=== PATIENT | female | born 1940 | race Two or more races ===

== ENCOUNTER 2017-05-20 08:14 | Observation (INO) | payer OTHER ==
--- NOTE | 2017-05-20 08:37 | PDOC ---
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 Patient states that her headache started on Saturday and has not gone away since. Patient states that the pain is located in her occipital region on the right side. Patient states that this is like her usual headache however the pain is more intense today. She rates the pain a 10 out of 10. She is tried taking Tylenol for the headache with minimal relief. Patient had a recent MRI of the brain on 04/15/17 which showed no abnormalities. Denies aura, photophobia , phonophobia. Denies weakness, chills, fevers, paresthesias, dizziness, nausea , vomiting and diarrhea. Past History - Travel Traveled outside of the country in the last 30 days: No Close contact w/someone who was outside of country & ill: No - Past Medical History Allergies/Adverse Reactions: Allergies Allergy/AdvReac Type Severity Reaction Status Date / Time No Known Allergies Allergy Verified 05/20/17 08:43 Home Medications: Ambulatory Orders Amlodipine Besylate 5 mg PO DAILY 04/21/16 Lisinopril 5 mg PO BID 04/21/16 Anemia: No Asthma: No Cancer: No Cardiac Disorders: Yes (aortic regurgitation, mitral valve insufficiency.) CVA: Yes COPD: No CHF: No Dementia: No GI Disorders: Yes (gastritis;STOMACH POLYP; HEMORRHOIDS) HTN: Yes Hypercholesterolemia: No Liver Disease: No Seizures: No Thyroid Disease: No - Surgical History Abdominal Surgery: Yes Appendectomy: No Cardiac Surgery: No Cholecystectomy: No Lung Surgery: No Neurologic Surgery: No Orthopedic Surgery: No - Immunization History Immunization Up to Date: Yes - Psycho/Social/Smoking Cessation Hx Anxiety: No Suicidal Ideation: No Smoking Status: No Smoking History: Never smoked Years of Tobacco Use: 0 Have you smoked in the past 12 months: No Number of Cigarettes Smoked Daily: 0 Cigars Per Day: 0 Hx Alcohol Use: No Drug/Substance Use Hx: No Substance Use Type: None Hx Substance Use Treatment: No Review of Systems - Review of Systems Able to Perform ROS?: Yes Is the patient limited [place] proficient: Yes Constitutional: No: Chills, Fever, Malaise, Weakness HEENTM: No: Eye Pain, Blurred Vision, Recent change in vision, Double Vision Respiratory: No: Cough, Shortness of Breath Cardiac (ROS): No: Chest Pain, Lightheadedness, Palpitations, Syncope, Chest Tightness ABD/GI: No: Diarrhea, Nausea, Vomiting Neurological: Yes: Headache. No: Numbness, Paresthesia, Tingling, Weakness, Unsteady Gait, Dizziness Psychiatric: Yes: Anxiety. No: Depression All Other Systems: Reviewed and Negative *Physical Exam - Physical Exam Comments: 05/20/17 10:00 GENERAL: Well developed, well nourished. AAOx3, breathing easily. Moderate distress, restless on exam bed. HEENT: Normocephalic, atraumatic. PERRLA, EOMI. No conjunctival pallor. Sclera are non- icteric. Moist mucous membranes. Oropharynx is clear. NECK: Supple. Full ROM, no nucal rigidity. No JVD. Carotid pulses 2+ and symmetric, without bruits. No thyromegaly. No lymphadenopathy. CARDIOVASCULAR: Regular rate and rhythm. II/ midsystolic murmur. No rubs, or gallops. Distal pulses are 2+ and symmetric. PULMONARY: No evidence of respiratory distress. Lungs clear to auscultation bilaterally. No wheezing, rales or rhonchi. ABDOMINAL: Soft. Non-tender. Non-distended. No rebound or guarding. No organomegaly. Normoactive bowel sounds. MUSCULOSKELETAL Normal range of motion at all joints. No bony deformities or tenderness. No CVA tenderness. EXTREMITIES: No cyanosis. No clubbing. No edema. No calf tenderness. SKIN: Warm and dry. Normal capillary refill. No rashes. No jaundice. NEUROLOGICAL: Alert, awake, appropriate. Cranial nerves 2-12 intact. No deficits to light touch and temperature in face, upper extremities and lower extremities. No motor deficits in the in face, upper extremities and lower extremities. Normoreflexic in the upper and lower extremities. Normal speech. Toes are down- going bilaterally. Gait is normal without ataxia. PSYCHIATRIC: Cooperative. Good eye contact. Appropriate mood and affect. ED Treatment Course - LABORATORY CBC & Chemistry Diagram: 05/20/17 09:20 05/20/17 09:20 Medical Decision Making - Medical Decision Making 05/20/17 09:56 Patient is a 76-year-old female with past medical history of hypertension, aortic regurg, who presents to the emergency department today complaining of headache. Brain MRI from 04/15/17 was negative. Given intensity of headache, will obtain CT scan at this time. 1. CBC, CMP 2. IV Tylenol, Reglan 3. CT Scan 4. Re-evaluate 05/20/17 10:06 Pt. states her pain is unchanged after IV tylenol and reglan. Will try benadryl at this time. Waiting for CT scan results. 05/20/17 10:[address] results, per radiology: No intracranial hemorrhage is seen. In comparison to prevent previous CT study of 04/27/2015 interval mild focal hypodensity is seen within the right paramedian aspect of the mid brain N basis pontis which could be artifactual in nature versus representing interval chronic /subacute ischemic changes. Correlate clinically. MRI evaluation may be considered. There is no obvious mass lesions seen No extra axial fluid collection is noted. The ventricles and cisterns appear unremarkable. Impression: Equivocal development of mild subtle hypodensity within the right mid brain/pontine as discussed above. Spoke with Dr. Dale in the ED. Will evaluate the patient. 05/20/17 12:02 Dr. Ramachandran recommending follow up MRI given changes on CT. Will call Dr. Rick to place in obs. 05/20/17 12:[address] Rick, agrees to obs and repeat MRI. *DC/Admit/Observation/Transfer Diagnosis at time of Disposition: Ischemic changes on computed tomography of head Headache Qualifiers: Headache type: unspecified Headache chronicity pattern: acute headache Intractability: intractable Qualified Code(s): R51 - Headache - Discharge Dispostion Condition at time of disposition: Stable Admit: Yes
[2017-05-20] MEDS ORDERED: ACETAMINOPHEN 325 MG TABLET (FP) PO ONE ×2 (09:02→15:15)
[2017-05-20] MEDS ORDERED: FAMOTIDINE 20 MG/50 ML IVPB 50 ML IVPB ONE ×2 (09:02→09:39)
[2017-05-20] MEDS ORDERED: METOCLOPRAMIDE HCL INJECTION 10 MG/2 ML VIAL ONE (09:11)
[2017-05-20] MEDS ORDERED: METOCLOPRAMIDE HCL INJECTION 10 MG/2 ML VIAL IVPB ONE (09:11)
[2017-05-20] MEDS ORDERED: ACETAMINOPHEN 1000 MG/100 ML VIAL (NON FORMULARY) IVPB ONE (09:11)
[2017-05-20] MEDS ORDERED: ACETAMINOPHEN INJECTION 100 ML IVPB ONE (09:26)
[2017-05-20 09:32] LABS: BASOPHIL 1.2 % (0-2.0); EOSINOPHIL 3.1 % (0-4.5); MCH 32.4 pg (25.7-33.7); MCHC 33.2 g/dl (32.0-36.0); MEAN CELL VOLUME 97.5 fl (80-96); MEAN PLT VOLUME 7.7 fl (7.5-11.1); NEUTROPHILS 58.4 % (42.8-82.8); PLATELET COUNT 231 K/MM3 (134-434); RDW 13.1 % (11.6-15.6); WHITE BLOOD COUNT 5.4 K/mm3 (4.0-10.0)
[2017-05-20] MEDS ORDERED: MAG HYDROX/AL HYDROX/SIMETH 30 ML UNIT-DOSE CUP ONE (09:39)
[2017-05-20 09:49] LABS: ALBUMIN 3.5 g/dl (3.4-5.0); ANION GAP 5 (8-16); BILIRUBIN,TOTAL 0.3 mg/dL (0.2-1.0); CALCIUM 9.1 mg/dL (8.5-10.1); CO2 30 mmol/L (21-32); CREATININE 0.7 mg/dL (0.55-1.02); GLUCOSE,RANDOM 97 mg/dL (74-106); SGOT/AST 14 U/L (15-37); SGPT/ALT 21 U/L (12-78)
[2017-05-20 09:50] LABS: ALK PHOS 71 U/L (45-117)
--- NOTE | 2017-05-20 10:39 | PDOC ---
Attending Attestation - Resident Resident Name: Padmini Phillips - ED Attending Attestation I have performed the following: I have examined & evaluated the patient, The case was reviewed & discussed with the resident, I agree w/resident's findings & plan, Exceptions are as noted - HPI HPI: 05/20/17 12:11 76y F hx of frequent headaches, htn, aortic regurg presents with posterior headache since saturday, it was gradual onset, mostly on the right side, feels similar but more intense than previous without associated vision changes, numbness/tinngling/weakness, n/v, neck stiffness/pain. no recent injuries or trauma, pt had a MRI about a month ago for evaluation of the same. pts exam is unremarakble including an intact neurologic exam. pts CT noted fro some hypodense lesios pt was evluated by neurology will be observed pending MRI - Physicial Exam PE: GENERAL: The patient is awake, alert, and fully oriented, Nontoxic - in no acute distress. HEAD: Normocephalic, atraumatic. EYES: extraocular movements intact, sclera anicteric, conjunctiva clear. ENT: Normal voice, Moist mucous membranes. NECK: Normal range of motion, supple LUNGS: Breath sounds equal, clear to auscultation bilaterally. No wheezes, no rhonchi, no rales. HEART: Regular rate and rhythm, normal S1 and S2 without murmur, rub or gallop. ABDOMEN: Soft, nontender, normoactive bowel sounds. No guarding, no rebound. . No CVA tenderness EXTREMITIES: Normal range of motion, no edema. NEUROLOGICAL: No facial assymetry, Normal speech, movnig all 4 extremities spontaneously and symmetrically, finger to nose symmetric b/l w/o dysmetria, normal rapid alternating movements. PSYCH: Normal mood, normal affect. SKIN: Warm, Dry, normal turgor, - Medical Decision Making 05/21/17 11:23 see above
--- NOTE | 2017-05-20 13:03 | CONSULT ---
Consult - text type - Consultation Consultation Note: Neurology History of Present Illness Patient is a 76-year-old female with past medical history of hypertension, aortic regurg, who presents to the emergency department today complaining of headache. Patient states that her headache started on Saturday and has not gone away since. Patient states that the pain is located in her occipital region on the right side. She states it's continous and constant. She tried Tylenol with minimal relief. Denies aura, photophobia, phonophobia. Denies weakness, chills , fevers, paresthesias, dizziness, nausea, vomiting and diarrhea. CT scan of head completed and showed questionable hypodensity of right midbrain/harjit and therefore MRI brain recommended. She completed an MRI brain approximately two months ago and was told it is normal. Past History - Travel Traveled outside of the country in the last 30 days: No Close contact w/someone who was outside of country & ill: No - Past Medical History Allergies/Adverse Reactions: Allergies Allergy/AdvReac Type Severity Reaction Status Date / Time No Known Allergies Allergy Verified 05/20/17 08:43 Home Medications: Ambulatory Orders Amlodipine Besylate 5 mg PO DAILY 04/21/16 Lisinopril 5 mg PO BID 04/21/16 Anemia: No Asthma: No Cancer: No Cardiac Disorders: Yes (aortic regurgitation, mitral valve insufficiency.) CVA: Yes COPD: No CHF: No Dementia: No GI Disorders: Yes (gastritis;STOMACH POLYP; HEMORRHOIDS) HTN: Yes Hypercholesterolemia: No Liver Disease: No Seizures: No Thyroid Disease: No - Surgical History Abdominal Surgery: Yes Appendectomy: No Cardiac Surgery: No Cholecystectomy: No Lung Surgery: No Neurologic Surgery: No Orthopedic Surgery: No - Immunization History Immunization Up to Date: Yes - Psycho/Social/Smoking Cessation Hx Anxiety: No Suicidal Ideation: No Smoking Status: No Smoking History: Never smoked Years of Tobacco Use: 0 Have you smoked in the past 12 months: No Number of Cigarettes Smoked Daily: 0 Cigars Per Day: 0 Hx Alcohol Use: No Drug/Substance Use Hx: No Substance Use Type: None Hx Substance Use Treatment: No Review of Systems - Review of Systems Able to Perform ROS?: Yes Is the patient limited [place] Citizen proficient: Yes Constitutional: No: Chills, Fever, Malaise, Weakness HEENTM: No: Eye Pain, Blurred Vision, Recent change in vision, Double Vision Respiratory: No: Cough, Shortness of Breath Cardiac (ROS): No: Chest Pain, Lightheadedness, Palpitations, Syncope, Chest Tightness ABD/GI: No: Diarrhea, Nausea, Vomiting Neurological: Yes: Headache. No: Numbness, Paresthesia, Tingling, Weakness, Unsteady Gait, Dizziness Psychiatric: Yes: Anxiety. No: Depression All Other Systems: Reviewed and Negative *Physical Exam Vital Signs Temperature 98.2 F 05/20/17 08:15 Pulse Rate 74 05/20/17 12:36 Respiratory Rate 18 05/20/17 12:36 Blood Pressure 115/74 05/20/17 12:36 O2 Sat by Pulse Oximetry (%) 100 05/20/17 12:36 GENERAL: Well developed, well nourished. AAOx3, breathing easily. Moderate distress, restless on exam bed. HEENT: Normocephalic, atraumatic. PERRLA, EOMI. No conjunctival pallor. Sclera are non- icteric. Moist mucous membranes. Oropharynx is clear. NECK: Supple. Full ROM, no nucal rigidity. No JVD. Carotid pulses 2+ and symmetric, without bruits. No thyromegaly. No lymphadenopathy. CARDIOVASCULAR: Regular rate and rhythm. II/ midsystolic murmur. No rubs, or gallops. Distal pulses are 2+ and symmetric. PULMONARY: No evidence of respiratory distress. Lungs clear to auscultation bilaterally. No wheezing, rales or rhonchi. ABDOMINAL: Soft. Non-tender. Non-distended. No rebound or guarding. No organomegaly. Normoactive bowel sounds. MUSCULOSKELETAL Normal range of motion at all joints. No bony deformities or tenderness. No CVA tenderness. EXTREMITIES: No cyanosis. No clubbing. No edema. No calf tenderness. SKIN: Warm and dry. Normal capillary refill. No rashes. No jaundice. NEUROLOGICAL: Alert, awake, appropriate. Cranial nerves 2-12 intact. No deficits to light touch and temperature in face, upper extremities and lower extremities. No motor deficits in the in face, upper extremities and lower extremities. Normoreflexic in the upper and lower extremities. Normal speech. Toes are down- going bilaterally. Gait is normal without ataxia. PSYCHIATRIC: Cooperative. Good eye contact. Appropriate mood and affect. CBCD WBC 5.4 K/mm3 (4.0-10.0) 05/20/17 09:20 RBC 4.18 M/mm3 (3.60-5.2) 05/20/17 09:20 Hgb 13.5 GM/dL (10.7-15.3) 05/20/17 09:20 Hct 40.8 % (32.4-45.2) 05/20/17 09:20 MCV 97.5 fl (80-96) H 05/20/17 09:20 MCHC 33.2 g/dl (32.0-36.0) 05/20/17 09:20 RDW 13.1 % (11.6-15.6) 05/20/17 09:20 Plt Count 231 K/MM3 (134-434) 05/20/17 09:20 MPV 7.7 fl (7.5-11.1) 05/20/17 09:20 CMP Sodium 143 mmol/L (136-145) 05/20/17 09:20 Potassium 4.7 mmol/L (3.5-5.1) 05/20/17 09:20 Chloride 108 mmol/L (98-107) H 05/20/17 09:20 Carbon Dioxide 30 mmol/L (21-32) 05/20/17 09:20 Anion Gap 5 (8-16) L 05/20/17 09:20 BUN 8 mg/dL (7-18) D 05/20/17 09:20 Creatinine 0.7 mg/dL (0.55-1.02) 05/20/17 09:20 Creat Clearance w eGFR > 60 (>60) 05/20/17 09:20 Calcium 9.1 mg/dL (8.5-10.1) 05/20/17 09:20 Total Bilirubin 0.3 mg/dL (0.2-1.0) D 05/20/17 09:20 AST 14 U/L (15-37) L D 05/20/17 09:20 ALT 21 U/L (12-78) 05/20/17 09:20 Alkaline Phosphatase 71 U/L (45-117) 05/20/17 09:20 Total Protein 7.0 g/dl (6.4-8.2) 05/20/17 09:20 Albumin 3.5 g/dl (3.4-5.0) 05/20/17 09:[address] results, per radiology: No intracranial hemorrhage is seen. In comparison to prevent previous CT study of 04/27/2015 interval mild focal hypodensity is seen within the right paramedian aspect of the mid brain N basis pontis which could be artifactual in nature versus representing interval chronic /subacute ischemic changes. Correlate clinically. MRI evaluation may be considered. There is no obvious mass lesions seen No extra axial fluid collection is noted. The ventricles and cisterns appear unremarkable. Impression: Equivocal development of mild subtle hypodensity within the right mid brain/pontine as discussed above. Medical Decision Making 76-year-old female with past medical history of hypertension, aortic regurg, who presents to the emergency department today complaining of headache. Patient states that her headache started on Saturday and has not gone away since. Patient states that the pain is located in her occipital region on the right side. She states it's continous and constant. She tried Tylenol with minimal relief. Denies aura, photophobia, phonophobia. Denies weakness, chills, fevers , paresthesias, dizziness, nausea, vomiting and diarrhea. CT scan of head completed and showed questionable hypodensity of right midbrain/harjit and therefore MRI brain recommended. She completed an MRI brain approximately two months ago and was told it is normal. Would start ASA if no GI contraindications. IF CVA found, then would recommended Carotid Doppler, Echo, Lipid panel, but would first obtain MRI brain w/o contrast. Blood pressure control recommended, prefer <140/90.
[2017-05-20 14:06] VITALS: BMI 25.2
[2017-05-20] MEDS ORDERED: ONDANSETRON *ODT* 4 MG TABLET SL PRN (17:18)
--- NOTE | 2017-05-20 17:22 | HP ---
Admitting History and Physical - Primary Care Physician PCP: Matheus Rick - Admission Chief Complaint: headache r/o cva History of Present Illness: ADMITTED FOR SEVERE HEADACHE FOR 2 DAYS, CT HEAD SHOWS HYPODENSITY AND NEEDS MRI TO R/O ACUTE VS CHRONIC PROCESS. HISTORY OF HTN AND MIGRAINE HEADACHES. CARDIAC VALVE DISEASE, CHECK ECHO AND CARDIOLOGY WORKUP. - Past Medical History Cardiovascular: Yes: Aortic Insufficiency, HTN, Mitral Insufficiency. No: AFIB , Aneurysm, Aortic Stenosis, CAD, CHF, Deep Vein Thrombosis, Hyperlipdemia, [place], Mitral Stenosis, Murmur, Pulmonary Hypertension, Other - Smoking History Smoking history: Never smoked Have you smoked in the past 12 months: No Aproximately how many cigarettes per day: 0 - Alcohol/Substance Use Hx Alcohol Use: No Home Medications - Allergies Allergies/Adverse Reactions: Allergies Allergy/AdvReac Type Severity Reaction Status Date / Time No Known Allergies Allergy Verified 05/20/17 08:43 - Home Medications Home Medications: Ambulatory Orders Amlodipine Besylate 5 mg PO DAILY 04/21/16 Lisinopril 5 mg PO BID 04/21/16 Review of Systems - Review of Systems Constitutional: reports: Loss of Appetite Eyes: reports: No Symptoms HENT: reports: No Symptoms Neck: reports: No Symptoms Cardiovascular: reports: No Symptoms Respiratory: reports: No Symptoms Gastrointestinal: reports: No Symptoms Genitourinary: reports: No Symptoms Musculoskeletal: reports: No Symptoms Integumentary: reports: No Symptoms Neurological: reports: Headache Endocrine: reports: No Symptoms Hematology/Lymphatic: reports: No Symptoms Psychiatric: reports: No Symptoms Physical Examination Vital Signs: Vital Signs Temperature 98.2 F 05/20/17 15:48 Pulse Rate 58 L 05/20/17 15:48 Respiratory Rate 18 05/20/17 15:48 Blood Pressure 141/73 05/20/17 15:48 O2 Sat by Pulse Oximetry (%) 100 05/20/17 14:00 Constitutional: Yes: Mild Distress Eyes: Yes: WNL HENT: Yes: WNL Neck: Yes: WNL Cardiovascular: Yes: WNL Respiratory: Yes: WNL Gastrointestinal: Yes: WNL Renal/: Yes: WNL Musculoskeletal: Yes: WNL Extremities: Yes: WNL Edema: No Peripheral Pulses WNL: Yes Integumentary: Yes: WNL Wound/Incision: Yes: Clean/Dry Neurological: Yes: WNL ...Motor Strength: WNL Psychiatric: Yes: WNL Imaging - Results Cat Scan: Report Reviewed Problem List - Problems (1) Headache Code(s): R51 - HEADACHE Qualifiers: Headache type: unspecified Headache chronicity pattern: acute headache Intractability: intractable Qualified Code(s): R51 - Headache (2) Ischemic changes on head CT Code(s): I67.82 - CEREBRAL ISCHEMIA (3) Hypertension Code(s): I10 - ESSENTIAL (PRIMARY) HYPERTENSION Assessment/Plan MRI BRAIN NEURO CHECKS LIPID PANEL ECHO F/U WITH NEUROLOGY
[2017-05-20] MEDS: KETOROLAC TROMETHAMINE 30 MG/1 ML VIAL IVPUSH PRN (18:57)
[2017-05-21] MEDS: KETOROLAC TROMETHAMINE 30 MG/1 ML VIAL IVPUSH PRN (01:55)
[2017-05-21] MEDS ORDERED: SUMAtriptan SUCCINATE 25 MG TABLET PO ONE ×2 (09:00→15:30)
[2017-05-21 09:03] LABS: CHOLESTEROL 142 mg/dL (50-200); LDL CHOLESTEROL (ONLY SJRH) 54 mg/dL (5-100)
--- NOTE | 2017-05-21 09:48 | PN ---
Progress Note (short form) - Note Progress Note: Neurology History of Present Illness Patient is a 76-year-old female with past medical history of hypertension, aortic regurg, who presents to the emergency department today complaining of headache. Patient states that her headache started on Saturday and has not gone away since. Patient states that the pain is located in her occipital region on the right side. She states it's continous and constant. She tried Tylenol with minimal relief. Denies aura, photophobia, phonophobia. Denies weakness, chills , fevers, paresthesias, dizziness, nausea, vomiting and diarrhea. CT scan of head completed and showed questionable hypodensity of right midbrain/harjit and therefore MRI brain recommended, completed overnight and reviewed images and report- did not show any acute changes. Patient with continued discomfort but awaiting discharge today. Imitrex prescribed by PCP and can be taken as needed. Active Medications Amlodipine Besylate (Norvasc -) 5 mg PO DAILY [facility] Last Admin: 05/21/17 09:23 Dose: 5 mg Ketorolac Tromethamine (Toradol Injection -) 30 mg IVPUSH Q6H PRN PRN Reason: PAIN Stop: 05/25/17 17:17 Last Admin: 05/21/17 01:55 Dose: 30 mg Lisinopril (Prinivil) 5 mg PO DAILY [facility] Last Admin: 05/21/17 09:23 Dose: 5 mg Ondansetron HCl (Zofran Odt -) 4 mg SL Q6H PRN PRN Reason: NAUSEA AND/OR VOMITING *Physical Exam Vital Signs Temperature 97.9 F 05/21/17 06:00 Pulse Rate 67 05/21/17 06:00 Respiratory Rate 18 05/21/17 06:00 Blood Pressure 147/68 05/21/17 06:00 O2 Sat by Pulse Oximetry (%) 100 05/21/17 01:17 GENERAL: Well developed, well nourished. AAOx3, breathing easily. Moderate distress, restless on exam bed. HEENT: Normocephalic, atraumatic. PERRLA, EOMI. No conjunctival pallor. Sclera are non- icteric. Moist mucous membranes. Oropharynx is clear. NECK: Supple. Full ROM, no nucal rigidity. No JVD. Carotid pulses 2+ and symmetric, without bruits. No thyromegaly. No lymphadenopathy. CARDIOVASCULAR: Regular rate and rhythm. II/ midsystolic murmur. No rubs, or gallops. Distal pulses are 2+ and symmetric. PULMONARY: No evidence of respiratory distress. Lungs clear to auscultation bilaterally. No wheezing, rales or rhonchi. ABDOMINAL: Soft. Non-tender. Non-distended. No rebound or guarding. No organomegaly. Normoactive bowel sounds. MUSCULOSKELETAL Normal range of motion at all joints. No bony deformities or tenderness. No CVA tenderness. EXTREMITIES: No cyanosis. No clubbing. No edema. No calf tenderness. SKIN: Warm and dry. Normal capillary refill. No rashes. No jaundice. NEUROLOGICAL: Alert, awake, appropriate. Cranial nerves 2-12 intact. No deficits to light touch and temperature in face, upper extremities and lower extremities. No motor deficits in the in face, upper extremities and lower extremities. Normoreflexic in the upper and lower extremities. Normal speech. Toes are down- going bilaterally. Gait is normal without ataxia. PSYCHIATRIC: Cooperative. Good eye contact. Appropriate mood and affect. CBCD WBC 5.4 K/mm3 (4.0-10.0) 05/20/17 09:20 RBC 4.18 M/mm3 (3.60-5.2) 05/20/17 09:20 Hgb 13.5 GM/dL (10.7-15.3) 05/20/17 09:20 Hct 40.8 % (32.4-45.2) 05/20/17 09:20 MCV 97.5 fl (80-96) H 05/20/17 09:20 MCHC 33.2 g/dl (32.0-36.0) 05/20/17 09:20 RDW 13.1 % (11.6-15.6) 05/20/17 09:20 Plt Count 231 K/MM3 (134-434) 05/20/17 09:20 MPV 7.7 fl (7.5-11.1) 05/20/17 09:20 CMP Sodium 143 mmol/L (136-145) 05/20/17 09:20 Potassium 4.7 mmol/L (3.5-5.1) 05/20/17 09:20 Chloride 108 mmol/L (98-107) H 05/20/17 09:20 Carbon Dioxide 30 mmol/L (21-32) 05/20/17 09:20 Anion Gap 5 (8-16) L 05/20/17 09:20 BUN 8 mg/dL (7-18) D 05/20/17 09:20 Creatinine 0.7 mg/dL (0.55-1.02) 05/20/17 09:20 Creat Clearance w eGFR > 60 (>60) 05/20/17 09:20 Calcium 9.1 mg/dL (8.5-10.1) 05/20/17 09:20 Total Bilirubin 0.3 mg/dL (0.2-1.0) D 05/20/17 09:20 AST 14 U/L (15-37) L D 05/20/17 09:20 ALT 21 U/L (12-78) 05/20/17 09:20 Alkaline Phosphatase 71 U/L (45-117) 05/20/17 09:20 Total Protein 7.0 g/dl (6.4-8.2) 05/20/17 09:20 Albumin 3.5 g/dl (3.4-5.0) 05/20/17 09:[address] results, per radiology: No intracranial hemorrhage is seen. In comparison to prevent previous CT study of 04/27/2015 interval mild focal hypodensity is seen within the right paramedian aspect of the mid brain N basis pontis which could be artifactual in nature versus representing interval chronic /subacute ischemic changes. Correlate clinically. MRI evaluation may be considered. There is no obvious mass lesions seen No extra axial fluid collection is noted. The ventricles and cisterns appear unremarkable. Impression: Equivocal development of mild subtle hypodensity within the right mid brain/pontine as discussed above. MRI brain: No acute changes, no infarcts visualized. Medical Decision Making 76-year-old female with past medical history of hypertension, aortic regurg, who presents to the emergency department today complaining of headache. Patient states that her headache started on Saturday and has not gone away since. Patient states that the pain is located in her occipital region on the right side. She states it's continous and constant. She tried Tylenol with minimal relief. Denies aura, photophobia, phonophobia. Denies weakness, chills, fevers , paresthesias, dizziness, nausea, vomiting and diarrhea. CT scan of head completed and showed questionable hypodensity of right midbrain/harjit and therefore MRI brain recommended. She completed an MRI brain which was negative. Imitrex perscribed and can be used. Fioricet also an option for outpatient medication. Blood pressure control recommended, prefer <140/90. Stroke precautions discussed. Daughter at bedside and discussed with her case and imaging findings. Ok for discharge.
[2017-05-21] MEDS ORDERED: amLODIPine BESYLATE 5 MG TABLET (FP) PO SCH (10:00)
[2017-05-21] MEDS ORDERED: LISINOPRIL 5 MG TABLET (FP) PO SCH (10:00)
[2017-05-21 11:05] VITALS: TEMP 98.2
[2017-05-21 14:56] VITALS: BP 138/76; PULSE 70
[2017-05-21] MEDS ORDERED: SUMAtriptan SUCCINATE 25 MG TABLET PO PRN (15:40)
--- NOTE | 2017-05-21 15:43 | DS ---
Physical Examination Vital Signs: Vital Signs Temperature 98.2 F 05/21/17 14:55 Pulse Rate 70 05/21/17 14:55 Respiratory Rate 18 05/21/17 14:55 Blood Pressure 138/76 05/21/17 14:55 O2 Sat by Pulse Oximetry (%) 96 05/21/17 09:00 Constitutional: Yes: No Distress Eyes: Yes: WNL HENT: Yes: WNL Neck: Yes: WNL Cardiovascular: Yes: WNL Respiratory: Yes: WNL Gastrointestinal: Yes: WNL Renal/: Yes: WNL Musculoskeletal: Yes: WNL Extremities: Yes: WNL Edema: No Peripheral Pulses WNL: Yes Integumentary: Yes: WNL Wound/Incision: Yes: Clean/Dry Neurological: Yes: WNL ...Motor Strength: WNL Psychiatric: Yes: WNL Discharge Summary Reason For Visit: HEADACHE, ISCHEMIC CHANGES ON CT OF HEAD Current Active Problems Headache (Acute) Ischemic changes on head CT (Acute) Procedures: Principal: mri brain Other Procedures: CT SCAN HEAD Hospital Course: ADMITTED TO OBSERVATION R/O CVA VS HEADACHE, MRI NO ACUTE CHANGES, SUMATRIPTAN PRN, F/U WITH ECHO SHOWS PULMONARY HTN. Condition: Improved - Instructions Diet, Activity, Other Instructions: SEE DR RICK FOR FOLLOW UP OF PULMONARY HYPERTENSION LOW SALT Referrals: Matheus Rick MD [Primary Care Provider] - Disposition: HOME - Home Medications Comprehensive Discharge Medication List: Ambulatory Orders Amlodipine Besylate 5 mg PO DAILY 04/21/16 Lisinopril 5 mg PO BID 04/21/16
== END 2017-05-21 16:25 | disposition home or self-care (01) ==
LOC: JER 08:14 → JERBED 12:25 → J5S 14:48
PROVIDERS: ADMIT Family Medicine; ATTEND Family Medicine
PROC: 3E0333Z Introduction of Anti-inflammatory into Peripheral Vein, Percutaneous Approach (ICD-10-PCS; principal; 2017-05-20)
PROC: 3E033GC Introduction of Other Therapeutic Substance into Peripheral Vein, Percutaneous Approach (ICD-10-PCS; 2017-05-20)
DX: I67.82 Cerebral ischemia (principal); R51 Headache; R93.0 Abnormal findings on diagnostic imaging of skull and head, not elsewhere classified; I10 Essential (primary) hypertension; I35.1 Nonrheumatic aortic (valve) insufficiency; Z86.73 Personal history of transient ischemic attack (TIA), and cerebral infarction without residual deficits
CPT/HCPCS: 36415; 70450-TC; 70551-TC; 80053; 80061; 83721; 85025; 85651; 86140; 93306-TC; 99284-25; G0378

== ENCOUNTER 2018-02-15 17:19 | Emergency (ER) | payer OTHER ==
[2018-02-15 17:39] VITALS: PULSE 74; TEMP 97.6; BMI 29.2
--- NOTE | 2018-02-15 17:43 | PDOC ---
History of Present Illness - General Chief Complaint: Headache Stated Complaint: ON THE BACK SIDE OF HER HEAD Time Seen by Provider: 02/15/18 17:42 - History of Present Illness Initial Comments: 02/15/18 18:13 Ms. Reed Conley is a 77 yo female w/ pmh of HTN, aortic regurgitation, migraines who presents to the ER with complaints of headache for the past day. She describes this as identical to her previous presentation for headache for which she was admitted with CT and MRI for evaluation. She describes the headache as being at the posterior of her right head and that it feels like "someone is hitting her head with a hammer." Denies photophobia, phonophobia, aura. She too, sumatriptan this morning and alprazolam at 1pm with no relief from symptoms. The patient denies chest pain, shortness of breath, and dizziness. Denies fever , chills, nausea, vomit, diarrhea and constipation. Denies dysuria, frequency, urgency and hematuria. Allergies: NKDA Past History - Past Medical History Allergies/Adverse Reactions: Allergies Allergy/AdvReac Type Severity Reaction Status Date / Time No Known Allergies Allergy Verified 02/15/18 17:38 Home Medications: Ambulatory Orders Amlodipine Besylate 5 mg PO DAILY 04/21/16 Lisinopril 5 mg PO BID 04/21/16 Amlodipine Besylate [Norvasc -] 5 mg PO DAILY tablet 05/21/17 Lisinopril [Prinivil] 5 mg PO DAILY tablet 05/21/17 Ondansetron [Zofran Odt -] 4 mg SL Q6H PRN #20 tab 05/21/17 Sumatriptan Succinate [Imitrex -] 25 mg PO BID #60 tablet 05/21/17 Methocarbamol [Robaxin -] 500 mg PO TID #21 tablet 02/15/18 Anemia: No Asthma: No Cancer: No Cardiac Disorders: Yes (aortic regurgitation, mitral valve insufficiency.) CVA: Yes COPD: No CHF: No Dementia: No GI Disorders: Yes (gastritis;STOMACH POLYP; HEMORRHOIDS) HTN: Yes Hypercholesterolemia: No Liver Disease: No Seizures: No Thyroid Disease: No - Surgical History Abdominal Surgery: Yes Appendectomy: No Cardiac Surgery: No Cholecystectomy: No Lung Surgery: No Neurologic Surgery: No Orthopedic Surgery: No - Immunization History Immunization Up to Date: Yes - Suicide/Smoking/Psychosocial Hx Smoking Status: No Smoking History: Never smoked Years of Tobacco Use: 0 Have you smoked in the past 12 months: No Number of Cigarettes Smoked Daily: 0 Cigars Per Day: 0 Information on smoking cessation initiated: No Hx Alcohol Use: No Drug/Substance Use Hx: No Substance Use Type: None Hx Substance Use Treatment: No Review of Systems - Review of Systems Comments:: 02/15/18 18:24 GENERAL/CONSTITUTIONAL: No fever or chills. No weakness. HEAD, EYES, EARS, NOSE AND THROAT: No change in vision. No ear pain or discharge. No sore throat. CARDIOVASCULAR: No chest pain or shortness of breath RESPIRATORY: No cough, wheezing, or hemoptysis. GASTROINTESTINAL: No nausea, vomiting, diarrhea or constipation. GENITOURINARY: No dysuria, frequency, or change in urination. MUSCULOSKELETAL: No joint or muscle swelling or pain. No neck or back pain. SKIN: No rash NEUROLOGIC: +Headache as described. No vertigo, loss of consciousness, or change in strength/sensation. ENDOCRINE: No increased thirst. No abnormal weight change HEMATOLOGIC/LYMPHATIC: No anemia, easy bleeding, or history of blood clots. ALLERGIC/IMMUNOLOGIC: No hives or skin allergy. 02/15/18 18:39 *Physical Exam - Vital Signs Last Vital Signs Temp Pulse Resp BP Pulse Ox 97.6 F 74 15 152/73 100 02/15/18 17:24 02/15/18 17:24 02/15/18 17:24 02/15/18 17:24 02/15/18 17:24 - Physical Exam Comments: 02/15/18 18:24 GENERAL: Awake, alert, and fully oriented, in no acute distress HEAD: No signs of trauma, normocephalic, atraumatic EYES: PERRLA, EOMI, sclera anicteric, conjunctiva clear ENT: Auricles normal inspection, hearing grossly normal, nares patent, oropharynx clear without exudates. Moist mucosa NECK: Normal ROM, supple, no lymphadenopathy, JVD, or masses LUNGS: No distress, speaks full sentences, clear to auscultation bilaterally HEART: Regular rate and rhythm, normal S1 and S2, no murmurs, rubs or gallops, peripheral pulses normal and equal bilaterally. ABDOMEN: Soft, nontender, normoactive bowel sounds. No guarding, no rebound. No masses EXTREMITIES: Normal inspection, Normal range of motion, no edema. No clubbing or cyanosis. NEUROLOGICAL: Cranial nerves II through XII grossly intact. Normal speech, normal gait, no focal sensorimotor deficits SKIN: Warm, Dry, normal turgor, no rashes or lesions noted. ED Treatment Course - LABORATORY CBC & Chemistry Diagram: 02/15/18 18:52 02/15/18 18:52 Medical Decision Making - Medical Decision Making 02/15/18 19:03 Ms. Reed Conley is a 77 yo female w/ pmh as described who presents for evaluation of headache x1 day. Labs sent for evaluation of infectious process or electrolyte abnormality. Benadryl/reglan/fluids/ativan/magnesium sent for symptomatic relief. Patient signed out to Dr. Solo for further evaluation. 02/15/18 19:04 *DC/Admit/Observation/Transfer Diagnosis at time of Disposition: Neck muscle spasm Headache Qualifiers: Headache type: unspecified Headache chronicity pattern: unspecified pattern Intractability: not intractable Qualified Code(s): R51 - Headache Back pain Qualifiers: Back pain location: back pain in unspecified location Chronicity: chronic Back pain laterality: unspecified Qualified Code(s): M54.9 - Dorsalgia, unspecified - Discharge Dispostion Disposition: HOME Condition at time of disposition: Stable - Prescriptions Prescriptions: Methocarbamol [Robaxin -] 500 mg PO TID #21 tablet - Referrals Referrals: [facility] [place] [facility] at [place] [Provider Group] - Patient Instructions Printed Discharge Instructions: DI for Headache Additional Instructions: You were seen in the ER for a headache. We did an exam, labs, and a head CT, and we did not find any signs of an emergency. Your pain improved with the medications we gave you here in the ER. After our assessment, we believe you are not having a medical emergency and you are safe to go home. 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 You can also take your normal prescription pain relievers as prescribed. Follow up with your regular doctor(s ) in the next 1-3 days. Call their clinic [facility], tell them you were seen in the ER, and tell them you need an appointment. Please come back to the ER at any time, 24 hours a day, for any new or worsening symptoms, like worsening headache , new numbness/tingling, fainting, dizziness, new vision changes, high fever, or other symptoms. If you are having symptoms that make it unsafe to drive, please call 911. - Post Discharge Activity
[2018-02-15] MEDS ORDERED: SODIUM CHLORIDE 1,000 ML IV STA (18:11)
[2018-02-15] MEDS ORDERED: MAGNESIUM SULF 50% (8.12 MEQ/2 ML-1 GM VIAL) IVPB ONE (18:12)
[2018-02-15] MEDS ORDERED: METOCLOPRAMIDE HCL INJECTION 10 MG/2 ML VIAL IVPB ONE (18:12)
[2018-02-15] MEDS ORDERED: METOCLOPRAMIDE HCL INJECTION 10 MG/2 ML VIAL ONE (18:37)
[2018-02-15] MEDS ORDERED: MAGNESIUM SULF 50% (8.12 MEQ/2 ML-1 GM VIAL) ONE (18:38)
[2018-02-15 18:58] LABS: BASO % 0.8 % (0-2.0); EOS % 2.3 % (0-4.5); HEMATOCRIT 38.3 % (32.4-45.2); HEMOGLOBIN 13.2 GM/dL (10.7-15.3); LYMPH % 26.7 % (8-40); MCH 33.1 pg (25.7-33.7); MCHC 34.5 g/dl (32.0-36.0); MEAN CELL VOLUME 95.8 fl (80-96); MEAN PLT VOLUME 7.6 fl (7.5-11.1); MONO % 8.5 % (3.8-10.2); NEUT % 61.7 % (42.8-82.8); PLATELET COUNT 243 K/MM3 (134-434); RBC 3.99 M/mm3 (3.60-5.2); RDW 13.7 % (11.6-15.6); WHITE BLOOD COUNT 6.6 K/mm3 (4.0-10.0)
--- NOTE | 2018-02-15 19:17 | PDOC ---
Attending Attestation - Resident Resident Name: Omar Welch - ED Attending Attestation I have performed the following: I have examined & evaluated the patient, The case was reviewed & discussed with the resident, I agree w/resident's findings & plan, Exceptions are as noted - HPI HPI: 02/15/18 19:14 "The patient is a 77 year old female, with a significant past medical history of hypertension, aortic regurg, and migraines, who presents to the emergency department with, 1 day of a headache. She describes her headache as pounding, gradually progressing, and localized to the posterior right side. She reports similar episodes in the past. Denies any new characteristics to her [place] today. Pt had similar episode last year and was admitted for CT and MRI, which was normal. She reports taking sumatriptan this morning and alprazolam at 1pm, without relief. She denies photophobia. Denies thunderclap. Denies neck stiffness. She denies recent fevers, chills, or dizziness. She denies recent nausea, vomit, diarrhea or constipation. She denies recent dysuria, frequency, urgency or hematuria. She denies recent chest pain or shortness of breath. Allergies: NKA Social history: Nonsmoker. Denies EtOH use and recreational drug use. " - Physicial Exam PE: 02/15/18 19:16 "GENERAL: Awake, alert, and fully oriented, in no acute distress. HEAD: No signs of trauma EYES: PERRLA, EOMI, sclera anicteric, conjunctiva clear ENT: Auricles normal inspection, hearing grossly normal, nares patent, oropharynx clear without exudates. Moist mucosa NECK: Nontender, no stepoffs, Normal ROM, supple, no lymphadenopathy, JVD, or masses LUNGS: Breath sounds equal, clear to auscultation bilaterally. No wheezes, and no crackles HEART: Regular rate and rhythm, normal S1 and S2, no murmurs, rubs or gallops ABDOMEN: Soft, nontender, normoactive bowel sounds. No guarding, no rebound. No masses EXTREMITIES: Normal range of motion, no edema. No clubbing or cyanosis. No cords, erythema, or tenderness NEUROLOGICAL: Cranial nerves II through XII intact. 5/5 strength and sensation in all extremities, Normal speech, normal gait, normal cerebellar function SKIN: Warm, Dry, normal turgor, no rashes or lesions noted. " - Medical Decision Making 02/15/18 19:16 77 F with headache. Likely migraine as symptoms are consistent with pt's previous headaches. No red flags for SAH or meningitis. Normal neuro exam. - Labs - CTH - IVF, tylenol, reglan, benadryl, ativan - reassess Pt signed out to oncoming attending at 7pm, pending labs, CT, and re-evaluation. Case discussed in detail with oncoming Emergency Physician including history, physical exam and ancillary studies. Oncoming Emergency Physician has assumed care for the patient and will complete the evaluation and treatment. Patient is aware of the plan.
[2018-02-15 19:23] LABS: ALBUMIN 3.7 g/dl (3.4-5.0); ALK PHOS 87 U/L (45-117); ANION GAP 6 (8-16); BILIRUBIN,TOTAL 0.4 mg/dL (0.2-1.0); BLOOD UREA NITROGEN 10 mg/dL (7-18); CALCIUM 9.4 mg/dL (8.5-10.1); CHLORIDE 108 mmol/L (98-107); CO2 30 mmol/L (21-32); CREATININE 0.9 mg/dL (0.55-1.02); GLUCOSE,RANDOM 114 mg/dL (74-106); POTASSIUM 4.8 mmol/L (3.5-5.1); SGOT/AST 20 U/L (15-37); SGPT/ALT 17 U/L (12-78); SODIUM 144 mmol/L (136-145); TOT PROT 7.8 g/dl (6.4-8.2)
[2018-02-15 19:49] VITALS: BP 149/72
--- NOTE | 2018-02-15 20:24 | PDOC ---
*Physical Exam - Vital Signs Last Vital Signs Temp Pulse Resp BP Pulse Ox 97.6 F 74 15 149/72 100 02/15/18 17:24 02/15/18 17:24 02/15/18 17:24 02/15/18 19:49 02/15/18 17:24 Care endorsed to me by Dr. Welch at the end of his shift. 77 YOF with h/o migraines (had negative CT and MRI in the past, followed by Dr. Ramachandran) who p/ w headache similar to her prior episodes. Patient remains uncomfortable after ED medications and head CT is now ordered and pending. Also pending labs, will reassess and decide dispo after all results are in. <Joselin Kumar - Last Filed: 02/15/18 22:48> - Vital Signs Last Vital Signs Temp Pulse Resp BP Pulse Ox 97.6 F 74 15 149/72 100 02/15/18 17:24 02/15/18 17:24 02/15/18 17:24 02/15/18 19:49 02/15/18 17:24 <Bella Pratt - Last Filed: 02/16/18 00:39> ED Treatment Course - LABORATORY CBC & Chemistry Diagram: 02/15/18 18:52 02/15/18 18:52 - ADDITIONAL ORDERS Additional order review: Laboratory Results 02/15/18 18:52 Sodium 144 Potassium 4.8 Chloride 108 H Carbon Dioxide 30 Anion Gap 6 L BUN 10 Creatinine 0.9 Creat Clearance w eGFR > 60 Random Glucose 114 H Calcium 9.4 Total Bilirubin 0.4 D AST 20 ALT 17 Alkaline Phosphatase 87 Total Protein 7.8 Albumin 3.7 02/15/18 18:52 RBC 3.99 MCV 95.8 MCHC 34.5 RDW 13.7 MPV 7.6 Neutrophils % 61.7 Lymphocytes % 26.7 Monocytes % 8.5 Eosinophils % 2.3 Basophils % 0.8 - Medications Given in the ED: ED Medications Discontinued Medications Generic Name Dose Route Start Last Admin Trade Name Freq PRN Reason Stop Dose Admin Diphenhydramine HCl 25 mg 02/15/18 18:12 02/15/18 18:54 Benadryl Injection - IVPB 02/15/18 18:13 25 mg ONCE ONE Administration Sodium Chloride 1,000 mls @ 1,000 mls/hr 02/15/18 18:11 02/15/18 18:54 Normal Saline - IV 02/15/18 19:10 1,000 mls/hr ASDIR STA Administration Lorazepam 1 mg 02/15/18 18:12 02/15/18 18:54 Ativan Injection - IVPUSH 02/15/18 18:13 1 mg ONCE ONE Administration Magnesium Sulfate 1 gm 02/15/18 18:12 02/15/18 18:54 Magnesium Sulfate IVPB 02/15/18 18:13 1 gm ONCE ONE Administration Metoclopramide HCl 10 mg 02/15/18 18:12 02/15/18 18:54 Reglan Injection - IVPB 02/15/18 18:13 10 mg ONCE ONE Administration <KumarJoselin - Last Filed: 02/15/18 22:48> - LABORATORY CBC & Chemistry Diagram: 02/15/18 18:52 02/15/18 18:52 - ADDITIONAL ORDERS Additional order review: Laboratory Results 02/15/18 18:52 Sodium 144 Potassium 4.8 Chloride 108 H Carbon Dioxide 30 Anion Gap 6 L BUN 10 Creatinine 0.9 Creat Clearance w eGFR > 60 Random Glucose 114 H Calcium 9.4 Total Bilirubin 0.4 D AST 20 ALT 17 Alkaline Phosphatase 87 Total Protein 7.8 Albumin 3.7 02/15/18 18:52 RBC 3.99 MCV 95.8 MCHC 34.5 RDW 13.7 MPV 7.6 Neutrophils % 61.7 Lymphocytes % 26.7 Monocytes % 8.5 Eosinophils % 2.3 Basophils % 0.8 - Medications Given in the ED: ED Medications Discontinued Medications Generic Name Dose Route Start Last Admin Trade Name Radha PRN Reason Stop Dose Admin Diphenhydramine HCl 25 mg 02/15/18 18:12 02/15/18 18:54 Benadryl Injection - IVPB 02/15/18 18:13 25 mg ONCE ONE Administration Sodium Chloride 1,000 mls @ 1,000 mls/hr 02/15/18 18:11 02/15/18 18:54 Normal Saline - IV 02/15/18 19:10 1,000 mls/hr ASDIR STA Administration Lorazepam 1 mg 02/15/18 18:12 02/15/18 18:54 Ativan Injection - IVPUSH 02/15/18 18:13 1 mg ONCE ONE Administration Magnesium Sulfate 1 gm 02/15/18 18:12 02/15/18 18:54 Magnesium Sulfate IVPB 02/15/18 18:13 1 gm ONCE ONE Administration Metoclopramide HCl 10 mg 02/15/18 18:12 02/15/18 18:54 Reglan Injection - IVPB 02/15/18 18:13 10 mg ONCE ONE Administration <Bella Pratt - Last Filed: 02/16/18 00:39> Medical Decision Making - Medical Decision Making 02/15/18 21:57 Patient Name: ANA BENNETT THIS IS A PRELIMINARY REPORT FROM IMAGING LOCAL GOVERNMENT LEGISLATOR IMAGES: [id number] EXAM DATE AND TIME: 2018-02-15 21:06:25 EXAM: CT Head Without Intravenous Contrast CLINICAL HISTORY: headache TECHNIQUE: Axial computed tomography images of the head/brain without intravenous contrast. This CT exam was performed using one or more of the following dose reduction techniques: Automated exposure control, Adjustment of the mA and/or kV according to patient size, Use of iterative reconstruction technique. COMPARISON: No relevant prior studies available. FINDINGS: BRAIN: NO hemorrhage or mass. Calcification is present in the basal ganglia. Minimal parenchymal volume loss consistent with atrophy. VENTRICLES: NO acute changes are demonstrated. No ventriculomegaly. BONES/JOINTS: Calvarium and skull base demonstrate NO acute changes. SOFT TISSUES: NO acute changes are demonstrated. VASCULATURE: Moderate atherosclerotic vascular calcifications are present. SINUSES: The paranasal sinuses demonstrate NO opacification or fluid levels. MASTOID AIR CELLS: The mastoid air cells and middle ear regions demonstrate NO evidence of fluid or opacification. IMPRESSION: 1. NO evidence of intracranial hemorrhage or mass. 2. There are incidental and/or chronic findings also present as noted. CPT: 51522. CT Scan of the head without contrast. 02/16/18 00:38 Pt seems to have a neck spasm. She will be treated accordingly. <Bella Pratt - Last Filed: 02/16/18 00:39> *DC/Admit/Observation/Transfer - Discharge Dispostion Decision to Admit order: No <KumarJoselin michael - Last Filed: 02/15/18 22:48> <Bella Pratt - Last Filed: 02/16/18 00:39> Diagnosis at time of Disposition: Neck muscle spasm Headache Qualifiers: Headache type: unspecified Headache chronicity pattern: unspecified pattern Intractability: not intractable Qualified Code(s): R51 - Headache Back pain Qualifiers: Back pain location: back pain in unspecified location Chronicity: chronic Back pain laterality: unspecified Qualified Code(s): M54.9 - Dorsalgia, unspecified - Discharge Dispostion Disposition: HOME Condition at time of disposition: Stable - Prescriptions Prescriptions: Methocarbamol [Robaxin -] 500 mg PO TID #21 tablet - Referrals Referrals: [facility] [place] Internal [facility] at [place] [Provider Group] - Patient Instructions Printed Discharge Instructions: DI for Headache Additional Instructions: You were seen in the ER for a headache. We did an exam, labs, and a head CT, and we did not find any signs of an emergency. Your pain improved with the medications we gave you here in the ER. After our assessment, we believe you are not having a medical emergency and you are safe to go home. Please take over -the-counter pain relievers, and also strip picker the prescription for muscle relaxer we are sending to your pharmacy. You can also take your normal prescription pain relievers as prescribed. Follow up with your regular doctor(s ) in the next 1-3 days. Call their clinic [facility], tell them you were seen in the ER, and tell them you need an appointment. Please come back to the ER at any time, 24 hours a day, for any new or worsening symptoms, like worsening headache , new numbness/tingling, fainting, dizziness, new vision changes, high fever, or other symptoms. If you are having symptoms that make it unsafe to drive, please call 911.
--- NOTE | 2018-02-15 22:16 | PDOC ---
*Physical Exam - Vital Signs Last Vital Signs Temp Pulse Resp BP Pulse Ox 97.6 F 74 15 149/72 100 02/15/18 17:24 02/15/18 17:24 02/15/18 17:24 02/15/18 19:49 02/15/18 17:24 ED Treatment Course - LABORATORY CBC & Chemistry Diagram: 02/15/18 18:52 02/15/18 18:52 - ADDITIONAL ORDERS Additional order review: Laboratory Results 02/15/18 18:52 Sodium 144 Potassium 4.8 Chloride 108 H Carbon Dioxide 30 Anion Gap 6 L BUN 10 Creatinine 0.9 Creat Clearance w eGFR > 60 Random Glucose 114 H Calcium 9.4 Total Bilirubin 0.4 D AST 20 ALT 17 Alkaline Phosphatase 87 Total Protein 7.8 Albumin 3.7 02/15/18 18:52 RBC 3.99 MCV 95.8 MCHC 34.5 RDW 13.7 MPV 7.6 Neutrophils % 61.7 Lymphocytes % 26.7 Monocytes % 8.5 Eosinophils % 2.3 Basophils % 0.8 - Medications Given in the ED: ED Medications Discontinued Medications Generic Name Dose Route Start Last Admin Trade Name Radha PRN Reason Stop Dose Admin Diphenhydramine HCl 25 mg 02/15/18 18:12 02/15/18 18:54 Benadryl Injection - IVPB 02/15/18 18:13 25 mg ONCE ONE Administration Sodium Chloride 1,000 mls @ 1,000 mls/hr 02/15/18 18:11 02/15/18 18:54 Normal Saline - IV 02/15/18 19:10 1,000 mls/hr ASDIR STA Administration Lorazepam 1 mg 02/15/18 18:12 02/15/18 18:54 Ativan Injection - IVPUSH 02/15/18 18:13 1 mg ONCE ONE Administration Magnesium Sulfate 1 gm 02/15/18 18:12 02/15/18 18:54 Magnesium Sulfate IVPB 02/15/18 18:13 1 gm ONCE ONE Administration Metoclopramide HCl 10 mg 02/15/18 18:12 02/15/18 18:54 Reglan Injection - IVPB 02/15/18 18:13 10 mg ONCE ONE Administration Medical Decision Making - Medical Decision Making 02/15/18 22:15 Received patient on signout and she has a normal head CT scan Patient Name: ANA BENNETT THIS IS A PRELIMINARY REPORT FROM IMAGING TECHNICAL SALES REPRESENTATIVES IMAGES: 139 EXAM DATE AND TIME: 2018-02-15 21:06:25 EXAM: CT Head Without Intravenous Contrast CLINICAL HISTORY: headache TECHNIQUE: Axial computed tomography images of the head/brain without intravenous contrast. This CT exam was performed using one or more of the following dose reduction techniques: Automated exposure control, Adjustment of the mA and/or kV according to patient size, Use of iterative reconstruction technique. COMPARISON: No relevant prior studies available. FINDINGS: BRAIN: NO hemorrhage or mass. Calcification is present in the basal ganglia. Minimal parenchymal volume loss consistent with atrophy. VENTRICLES: NO acute changes are demonstrated. No ventriculomegaly. BONES/JOINTS: Calvarium and skull base demonstrate NO acute changes. SOFT TISSUES: NO acute changes are demonstrated. VASCULATURE: Moderate atherosclerotic vascular calcifications are present. SINUSES: The paranasal sinuses demonstrate NO opacification or fluid levels. MASTOID AIR CELLS: The mastoid air cells and middle ear regions demonstrate NO evidence of fluid or opacification. IMPRESSION: 1. NO evidence of intracranial hemorrhage or mass. 2. There are incidental and/or chronic findings also present as noted. CPT: 83357. CT Scan of the head without contrast. 02/15/18 22:16 Pt is complaning of musculoskeletal neck stiffness and spasm. Pt will be treated with meds/analgesics and muscle relaxants. 02/15/18 22:47 Pt is feeling better and she is refusinf spinal tap to work up her headache further. She has been taking the imitrex that has been previously prescribed to her for migraine headaches. *DC/Admit/Observation/Transfer Diagnosis at time of Disposition: Headache, Back pain, Neck muscle spasm - Discharge Dispostion Disposition: HOME Condition at time of disposition: Stable - Prescriptions Prescriptions: Methocarbamol [Robaxin -] 500 mg PO TID #21 tablet - Referrals Referrals: [facility] [place] [facility] at [place] [Provider Group] - Patient Instructions Printed Discharge Instructions: DI for Headache Additional Instructions: You were seen in the ER for a headache. We did an exam, labs, and a head CT, and we did not find any signs of an emergency. Your pain improved with the medications we gave you here in the ER. After our assessment, we believe you are not having a medical emergency and you are safe to go home. Please take over -the-counter pain relievers, and also picker packer the prescription for muscle relaxer we are sending to your pharmacy. You can also take your normal prescription pain relievers as prescribed. Follow up with your regular doctor(s ) in the next 1-3 days. Call their clinic [facility], tell them you were seen in the ER, and tell them you need an appointment. Please come back to the ER at any time, 24 hours a day, for any new or worsening symptoms, like worsening headache , new numbness/tingling, fainting, dizziness, new vision changes, high fever, or other symptoms. If you are having symptoms that make it unsafe to drive, please call 911. - Post Discharge Activity
[2018-02-15] MEDS ORDERED: IBUPROFEN 400 MG TABLET (FP) PO ONE (22:18)
[2018-02-15] MEDS ORDERED: METHOCARBAMOL 500 MG TABLET PO ONE (22:18)
== END 2018-02-15 22:53 | disposition home or self-care (01) ==
LOC: JER 17:19
PROC: 3E0337Z Introduction of Electrolytic and Water Balance Substance into Peripheral Vein, Percutaneous Approach (ICD-10-PCS; principal; 2018-02-15)
PROC: 3E033NZ Introduction of Analgesics, Hypnotics, Sedatives into Peripheral Vein, Percutaneous Approach (ICD-10-PCS; 2018-02-15)
PROC: 3E033GC Introduction of Other Therapeutic Substance into Peripheral Vein, Percutaneous Approach (ICD-10-PCS; 2018-02-15)
PROC: 3E033GC Introduction of Other Therapeutic Substance into Peripheral Vein, Percutaneous Approach (ICD-10-PCS; 2018-02-15)
DX: M54.89 Other dorsalgia (principal); M62.838 Other muscle spasm; I10 Essential (primary) hypertension; Z87.19 Personal history of other diseases of the digestive system; Z86.73 Personal history of transient ischemic attack (TIA), and cerebral infarction without residual deficits
CPT/HCPCS: 36415; 70450-TC; 80053; 85025; 96361; 96374; 96375; 99283-25; J7030

== ENCOUNTER 2018-02-17 09:34 | Emergency (ER) | payer OTHER ==
[2018-02-17 10:35] VITALS: TEMP 98.2; BMI 25.9
[2018-02-17] MEDS ORDERED: KETOROLAC TROMETHAMINE 30 MG/1 ML VIAL IVPUSH ONE (11:00)
[2018-02-17] MEDS ORDERED: ACETAMINOPHEN 1000 MG/100 ML VIAL (NON FORMULARY) IVPB ONE (11:00)
[2018-02-17] MEDS ORDERED: SODIUM CHLORIDE 1,000 ML IV STA (11:00)
[2018-02-17] MEDS ORDERED: METOCLOPRAMIDE HCL INJECTION 10 MG/2 ML VIAL IVPB ONE (11:00)
[2018-02-17] MEDS ORDERED: DEXAMETHASONE SOD PHOSPHATE 10 MG/1 ML VIAL IVPUSH ONE (11:00)
--- NOTE | 2018-02-17 11:09 | PDOC ---
History of Present Illness - General Chief Complaint: Migraine Headache Stated Complaint: HEADACHE Time Seen by Provider: 02/17/18 10:43 - History of Present Illness Initial Comments: 02/17/18 11:04 "The patient is a 77 year old female, with a significant past medical history of hypertension, aortic regurg, and migraines, who presents to the emergency department with headache since Saturday. Pt was seen here Saturday, was given migraine cocktail which she states helped temporarily. Pt was DC'ed after her symptoms improved but states that her headache recurred shortly after leaving. She reports the pain is localized to the back of her head. She states the headache is mostly constant, but does report the headache does spontaneously improve at times before recurring. Pt states she has not taken anything at home because she wasn't given any prescriptions. She doesn't know who her neurologist is. She states this is like her typical migraines. She denies photophobia. Denies thunderclap. Denies neck stiffness. She denies recent fevers, chills, or dizziness. She denies recent nausea, vomit, diarrhea or constipation. She denies recent dysuria, frequency, urgency or hematuria. She denies recent chest pain or shortness of breath. Allergies: NKA Social history: Nonsmoker. Denies EtOH use and recreational drug use. " Past History - Past Medical History Allergies/Adverse Reactions: Allergies Allergy/AdvReac Type Severity Reaction Status Date / Time No Known Allergies Allergy Verified 02/17/18 10:35 Home Medications: Ambulatory Orders Amlodipine Besylate [Norvasc -] 5 mg PO DAILY 02/17/18 Aspirin [ASA -] 81 mg PO DAILY 02/17/18 Lisinopril [Zestril] 5 mg PO DAILY 02/17/18 Sumatriptan Succinate [Imitrex -] 25 mg PO BID PRN #30 tablet 02/17/18 Anemia: No Asthma: No Cancer: No Cardiac Disorders: Yes (aortic regurgitation, mitral valve insufficiency.) CVA: Yes COPD: No CHF: No Dementia: No GI Disorders: Yes (gastritis;STOMACH POLYP; HEMORRHOIDS) HTN: Yes Hypercholesterolemia: No Liver Disease: No Seizures: No Thyroid Disease: No - Surgical History Abdominal Surgery: Yes Appendectomy: No Cardiac Surgery: No Cholecystectomy: No Lung Surgery: No Neurologic Surgery: No Orthopedic Surgery: No - Immunization History Immunization Up to Date: Yes - Suicide/Smoking/Psychosocial Hx Smoking Status: No Smoking History: Never smoked Years of Tobacco Use: 0 Have you smoked in the past 12 months: No Number of Cigarettes Smoked Daily: 0 Cigars Per Day: 0 Information on smoking cessation initiated: No Hx Alcohol Use: No Drug/Substance Use Hx: No Substance Use Type: None Hx Substance Use Treatment: No Review of Systems - Review of Systems Comments:: 02/17/18 11:06 """GENERAL/CONSTITUTIONAL: No fever or chills. No weakness. HEAD, EYES, EARS, NOSE AND THROAT: (+) posterior headache. No change in vision. No ear pain or discharge. No sore throat. CARDIOVASCULAR: No chest pain or shortness of breath. RESPIRATORY: No cough, wheezing, or hemoptysis. GASTROINTESTINAL: No nausea, vomiting, diarrhea or constipation. GENITOURINARY: No dysuria, frequency, or change in urination. MUSCULOSKELETAL: No joint or muscle swelling or pain. No neck or back pain. SKIN: No rash NEUROLOGIC: (+) headache, vertigo, loss of consciousness, or change in strength/ sensation. ENDOCRINE: No increased thirst. No abnormal weight change. HEMATOLOGIC/LYMPHATIC: No anemia, easy bleeding, or history of blood clots. ALLERGIC/IMMUNOLOGIC: No hives or skin allergy. """ *Physical Exam - Vital Signs Last Vital Signs Temp Pulse Resp BP Pulse Ox 98.2 F 74 16 155/71 98 02/17/18 09:35 02/17/18 09:35 02/17/18 09:35 02/17/18 09:35 02/17/18 09:35 - Physical Exam Comments: 02/17/18 11:06 """GENERAL: Awake, alert, and fully oriented, in no acute distress. HEAD: No signs of trauma EYES: PERRLA, EOMI, sclera anicteric, conjunctiva clear ENT: Auricles normal inspection, hearing grossly normal, nares patent, oropharynx clear without exudates. Moist mucosa NECK: Nontender, no stepoffs, Normal ROM, supple, no lymphadenopathy, JVD, or masses LUNGS: Breath sounds equal, clear to auscultation bilaterally. No wheezes, and no crackles HEART: Regular rate and rhythm, normal S1 and S2, no murmurs, rubs or gallops ABDOMEN: Soft, nontender, normoactive bowel sounds. No guarding, no rebound. No masses EXTREMITIES: Normal range of motion, no edema. No clubbing or cyanosis. No cords, erythema, or tenderness NEUROLOGICAL: Cranial nerves II through XII intact. 5/5 strength and sensation in all extremities, Normal speech, normal gait, normal cerebellar function SKIN: Warm, Dry, normal turgor, no rashes or lesions noted. """ Medical Decision Making - Medical Decision Making 02/17/18 11:06 77 F with headache. Likely migraine, as symptoms are consistent with pt's previous migraines with no new characteristics or neuro deficits. Seen here 2 days ago for same complaint. Had CT head at that time that was normal. - IVF, tylenol, reglan, steroids - Reassess 02/17/18 12:58 Pt reassessed - now with significant improvement of headache. Pt with normal exam, no neuro deficits. Pt is well appearing, with normal vitals. Clinically stable for DC at this time. I discussed the physical exam findings, ancillary test results and final diagnoses with the patient. I answered all of the patient's questions. The patient was satisfied with the care received and felt comfortable with the discharge plan and treatment plan. The patient agrees to follow up with the primary care physician within 24-72 hours. *DC/Admit/Observation/Transfer Diagnosis at time of Disposition: Migraine - Discharge Dispostion Disposition: HOME - Prescriptions Prescriptions: Sumatriptan Succinate [Imitrex -] 25 mg PO BID PRN #30 tablet PRN Reason: Headache - Referrals Referrals: Red Workman DO [Staff Physician] - - Patient Instructions Printed Discharge Instructions: DI for Migraine Additional Instructions: You must follow up with your neurologist as soon as possible for further evaluation of your migraines. Call the number provided to make an appointment with our neurologist within 1 week. If you experience worsening headache, fevers, neck pain, vomiting, confusion, or any other concerning symptoms, return to the ER immediately. Debe hacer un seguimiento con león neurlogo lo antes posible para tree mayor evaluacin de danelle migraas. Llame al nmero proporcionado para programar tree adriana con nuestro neurlogo dentro de 1 semana. Si experimenta empeoramiento de dolor de mirlande, fiebre, dolor de tara, v mitos, confusin o cualquier otro sntoma preocupante, regrese a la oscar de urgencias inmediatamente. Print Language: MONTENEGRIN - Post Discharge Activity - Attestations Physician Attestion: 02/17/18 12:57 I, Dr. Lewis Henderson MD, attest that this document has been prepared under my direction and personally reviewed by me in its entirety. I further attest, that it accurately reflects all work, treatment, procedures and medical decision -making performed by me.
[2018-02-17] MEDS ORDERED: DEXAMETHASONE SOD PHOSPHATE 10 MG/1 ML VIAL ONE (11:10)
[2018-02-17] MEDS ORDERED: ACETAMINOPHEN INJECTION 100 ML IVPB ONE (11:10)
[2018-02-17] MEDS ORDERED: METOCLOPRAMIDE HCL INJECTION 10 MG/2 ML VIAL ONE (11:10)
[2018-02-17] MEDS ORDERED: KETOROLAC TROMETHAMINE 15 MG/ML VIAL ONE (11:11)
[2018-02-17] MEDS ORDERED: SUMAtriptan SUCCINATE 50 MG TABLET PO SCH (11:15)
[2018-02-17] MEDS ORDERED: SUMAtriptan SUCCINATE 50 MG TABLET ONE ×2 (11:28→11:30)
[2018-02-17 13:43] VITALS: BP 150/85; PULSE 70
--- NOTE | 2018-02-19 16:06 | EKG ---
Test Reason : Blood Pressure : / mmHG Vent. Rate : 085 BPM Atrial Rate : 085 BPM P-R Int : 164 ms QRS Dur : 066 ms QT Int : 362 ms P-R-T Axes : 077 040 056 degrees QTc Int : 430 ms POOR DATA QUALITY, INTERPRETATION MAY BE ADVERSELY AFFECTED NORMAL SINUS RHYTHM RIGHT ATRIAL ENLARGEMENT BORDERLINE ECG WHEN COMPARED WITH ECG OF 21-APR-2016 09:05, VENT. RATE HAS INCREASED BY 30 BPM CRITERIA FOR SEPTAL INFARCT ARE NO LONGER PRESENT Confirmed by CASSIE PORTILLO, ISSA ([id number]) on 02/19/2018 4:06:19 PM Referred By: Confirmed By:ISSA MATTHEWS MD
== END 2018-02-17 13:26 | disposition home or self-care (01) ==
LOC: JER 09:34
PROC: 3E033NZ Introduction of Analgesics, Hypnotics, Sedatives into Peripheral Vein, Percutaneous Approach (ICD-10-PCS; principal; 2018-02-17)
PROC: 3E0333Z Introduction of Anti-inflammatory into Peripheral Vein, Percutaneous Approach (ICD-10-PCS; 2018-02-17)
PROC: 3E033GC Introduction of Other Therapeutic Substance into Peripheral Vein, Percutaneous Approach (ICD-10-PCS; 2018-02-17)
DX: G43.909 Migraine, unspecified, not intractable, without status migrainosus (principal); I10 Essential (primary) hypertension; I35.1 Nonrheumatic aortic (valve) insufficiency; Z79.82 Long term (current) use of aspirin
CPT/HCPCS: 93005; 93010; 96374; 96375; 99282-25; J0131; J1100; J7030

== ENCOUNTER 2018-06-02 09:03 | Emergency (ER) | payer OTHER ==
[2018-06-02 09:12] VITALS: BP 137/65; PULSE 64; TEMP 98; BMI 29.2
--- NOTE | 2018-06-02 09:24 | PDOC ---
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 77 year old female with PMH HTN, pre-diabetes, migraines, left breast mass (0.2 cm left breast mass, benign per US 08/15/17) presenting for left breast pain x1- 2 weeks. She denies fever, chills, nausea, vomiting, diarrhea, abdominal pain, chest pain, shortness of breath, headache, dizziness, numbness, tingling, weakness. She also complains of chronic left shoulder pain that she states she gets when she wears a heavy purse on her left side too much, feels similar to prior episodes. PCP - [facility]line Allergies - NKDA Denies etoh use, nicotine use, illicit drug use. Past History - Past Medical History Allergies/Adverse Reactions: Allergies Allergy/AdvReac Type Severity Reaction Status Date / Time No Known Allergies Allergy Verified 06/02/18 09:05 Home Medications: Ambulatory Orders Amlodipine Besylate [Norvasc -] 5 mg PO DAILY 02/17/18 Aspirin [ASA -] 81 mg PO DAILY 02/17/18 Lisinopril [Zestril] 5 mg PO DAILY 02/17/18 Omeprazole 20 mg PO DAILY 06/02/18 Anemia: No Asthma: No Cancer: No Cardiac Disorders: Yes (aortic regurgitation, mitral valve insufficiency.) CVA: Yes COPD: No CHF: No DVT: No Dementia: No GI Disorders: Yes (gastritis;STOMACH POLYP; HEMORRHOIDS) HTN: Yes Hypercholesterolemia: No Liver Disease: No Seizures: No Thyroid Disease: No - Surgical History Abdominal Surgery: Yes Appendectomy: No Cardiac Surgery: No Cholecystectomy: No Lung Surgery: No Neurologic Surgery: No Orthopedic Surgery: No - Immunization History Immunization Up to Date: Yes - Suicide/Smoking/Psychosocial Hx Smoking Status: No Smoking History: Never smoked Years of Tobacco Use: 0 Have you smoked in the past 12 months: No Number of Cigarettes Smoked Daily: 0 Cigars Per Day: 0 Information on smoking cessation initiated: No Hx Alcohol Use: No Drug/Substance Use Hx: No Substance Use Type: None Hx Substance Use Treatment: No Review of Systems - Review of Systems Able to Perform ROS?: Yes Comments:: 06/02/18 09:59 ROS performed via phone form setter helper - [id number] General: denies fever, chills, night sweats, generalized weakness. HEENT: denies sore throat, rhinorrhea, ear pain. Breast: admits to left breast pain. Heart: denies chest pain, palpitations, syncope, lower extremity swelling, diaphoresis. Respiratory: denies shortness of breath, cough, sputum production, hematemesis. Abdomen: denies abdominal pain, nausea, vomiting, diarrhea, constipation, blood in stool. : denies dysuria, increased urinary frequency, hematuria, urinary incontinence , flank pain. Back: denies back pain, flank pain. Musculoskeletal: admits to left shoulder pain. Neurological: denies headache, dizziness, numbness, tingling, weakness. Skin: denies rash, laceration, abrasion. *Physical Exam - Vital Signs Last Vital Signs Temp Pulse Resp BP Pulse Ox 98.0 F 64 18 137/65 100 06/02/18 09:09 06/02/18 09:09 06/02/18 09:09 06/02/18 09:09 06/02/18 09:09 - Physical Exam Comments: 06/02/18 10:09 Appearance: comfortable. HEENT: head is normocephalic, atraumatic. EOMI. PERRLA. Neck: supple. Full ROM. Heart: regular rhythm. no murmurs, rubs or gallops. No pericardial friction rub. Breast: Right breast appears normal, no erythema, no nipple discharge, no tenderness to palpation. Left breast generally tender to palpation, worse to the left of the nipple. Left breast no erythema, no nipple discharge. Tenderness noted to left axilla. Lungs: clear to auscultation bilaterally. no crackles, rhonchi or wheezing. no stridor. Abdomen: soft, nontender. normal bowel sounds. no rebound, guarding, masses. Extremities: Peripheral pulses intact. No lower extremity edema. Neurological: Alert. Oriented x3. CN 2-12 grossly intact. Moves all four extremities. Medical Decision Making - Medical Decision Making 06/02/18 10:00 HPI/ROS/PE performed via phone form setter helper - [id number]. 77 year old female with PMH HTN, pre-diabetes, migraines, left breast mass (0.2 cm left breast mass, benign per US 08/15/17) presenting for left breast pain x1- 2 weeks. She denies fever, chills, nausea, vomiting, diarrhea, abdominal pain, chest pain, shortness of breath, headache, dizziness, numbness, tingling, weakness. No erythema to breast, breast is generally tender but worse to the left of the nipple, no discharge from nipple, no hard mass palpated. Initial Vital Signs Temp Pulse Resp BP Pulse Ox 98.0 F 64 18 137/65 100 06/02/18 09:09 06/02/18 09:09 06/02/18 09:09 06/02/18 09:09 06/02/18 09:09 Afebrile. No tachycardia. No tachypnea. No hypotension. No hypoxia. Paged Dr. Rick. 06/02/18 10:[address] Rick, who requests bilateral breast ultrasound to be performed here. He states he will see the patient in the office this week and order a mammogram. He states he would like the pt to be given a referral for a Breast Surgeon, Dr. Day Alejo. Pending US. 06/02/18 11:00 US report - no change from prior on 08/15/17. stable 0.2 cm nodule. Pt will be discharged with instructions for follow up with PCP, Breast Surgery, as well as strict return precautions. *DC/Admit/Observation/Transfer Diagnosis at time of Disposition: Breast pain - Discharge Dispostion Disposition: HOME Condition at time of disposition: Stable - Referrals - Patient Instructions Printed Discharge Instructions: DI for Breast Pain (Mastalgia) Additional Instructions: You were seen today for breast pain. The ultrasound of your breast revealed no change from the prior Ultrasound you had performed 08/15/2017. I spoke with your Primary Care Doctor, Dr. Rick, who states he will see you this week to order a mammogram. He requested I provide a follow up referral for a breast surgeon, Dr. Day Alejo. I have provided information in your discharge paperwork with their contact information. Call Dr. Rick's office today and make an appointment for this week. Bring the paperwork given to you today with you to your appointment. Call Dr. Torres's office today and make an appointment for this week. Bring the paperwork given to you today with you to your appointment. Return to the Emergency Department for increasing pain, weakness of your arms or legs, chest pain, shortness of breath, fever, generalized weakness or any other new, worsening or concerning symptoms. Hoy fuiste visto por dolor de senos. El ultrasonido de león seno no revel ningn cambio con respecto al ultrasonido anterior que realiz el 08/15/2017. Habl con león mdico de atencin primaria, el Dr. Rick, quien afirma que lo toby esta semana para ordenar tree mamografa. Pidi que proporcione tree referencia de seguimiento para un cirujano de mama, el Dr. Day Alejo. He proporcionado informacin en león documentacin de descarga con león informacin de contacto. Llame a la oficina del Dr. Merline liu y dante tree adriana para esta semana. Traiga la documentacin que le rakesh hoy con usted a león adriana. Llame a la oficina del Dr. Melissa liu y dante tree adriana para esta semana. Traiga la documentacin que le rakesh hoy con usted a león adriana. Regrese al Departamento de Emergencia para aumentar el dolor, la debilidad de los brazos o las piernas, dolor en el pecho, dificultad para respirar, fiebre, debilidad generalizada o cualquier otro empeoramiento nuevo, relacionado con los sntomas. Print Language: ROMANIAN - Post Discharge Activity
--- NOTE | 2018-06-02 09:29 | PDOC ---
Attending Attestation - Resident Resident Name: Belem Marroquin - ED Attending Attestation I have performed the following: I have examined & evaluated the patient, The case was reviewed & discussed with the resident, I agree w/resident's findings & plan, Exceptions are as noted - HPI HPI: 06/04/18 10:32 Ms Reed Conley is a 77 year old female with PMH HTN, pre-diabetes, migraines, left breast mass (0.2 cm left breast mass, benign per US 08/15/17) presenting for left breast pain x1-2 weeks. No skin changes No fevers or chills - Physicial Exam PE: 06/04/18 10:37 GENERAL: The patient is in no acute distress. NECK: Normal range of motion, supple without lymphadenopathy LUNGS: Breath sounds equal, clear to auscultation bilaterally. No wheezes, and no crackles. HEART:Regular rate and rhythm, normal S1 and S2 without murmur, rub or gallop. ABDOMEN: Soft, nontender EXTREMITIES: Normal range of motion NEUROLOGICAL: Cranial nerves II through XII grossly intact. Normal speech. No focal neurological deficits. SKIN: Warm, Dry, normal turgor, no rashes or lesions noted. - Medical Decision Making 06/02/18 10:30 EKG: SR rate of 58 bpm, axis nml, no st elevations or depressions 77 yo F presenting with a complaint of left breast pain, no trauma, no swelling , no drainage No actual chest pain Pain has been present for the past month She remembered having an abnormal mammogram She is concerned Case reviewed with PMD He requests US US performed and is stable Will discharge to home Pt will follow up with PMD for referral for mammogram Clinical impression: breast pain, initial presentation
--- NOTE | 2018-06-04 15:04 | EKG ---
Test Reason : Blood Pressure : / mmHG Vent. Rate : 058 BPM Atrial Rate : 058 BPM P-R Int : 172 ms QRS Dur : 074 ms QT Int : 400 ms P-R-T Axes : 074 029 063 degrees QTc Int : 392 ms SINUS BRADYCARDIA WITH SINUS ARRHYTHMIA OTHERWISE NORMAL ECG WHEN COMPARED WITH ECG OF 17-FEB-2018 10:08, NO SIGNIFICANT CHANGE WAS FOUND Confirmed by ISSA MATTHEWS MD ([id number]) on 06/04/2018 3:03:26 PM Referred By: Confirmed By:ISSA MATTHEWS MD
== END 2018-06-02 11:32 | disposition home or self-care (01) ==
LOC: JER 09:03
DX: N64.4 Mastodynia (principal); D24.2 Benign neoplasm of left breast; I10 Essential (primary) hypertension; R73.03 Prediabetes; G43.909 Migraine, unspecified, not intractable, without status migrainosus; Z86.73 Personal history of transient ischemic attack (TIA), and cerebral infarction without residual deficits; Z87.19 Personal history of other diseases of the digestive system; I34.0 Nonrheumatic mitral (valve) insufficiency; I35.1 Nonrheumatic aortic (valve) insufficiency
CPT/HCPCS: 76641-TC-50; 93005; 93010; 99283-25

== ENCOUNTER 2020-05-12 03:20 | Emergency (ER) | payer OTHER ==
[2020-05-12 03:25] VITALS: BMI 25.4
--- NOTE | 2020-05-12 04:32 | PDOC ---
History of Present Illness - General Chief Complaint: Blood Pressure Problem Stated Complaint: BLOOD PRESSURE PROBLEM - History of Present Illness Initial Comments: 79 yo female with PMH of hypertension, mitral valve pathology (pt doesnt know dx), cva presents with 3 day hx of hypertension. She has been measuring her blood pressure to be 180s/110s at home. She endorses a headache and states she is feeling unwell. She denies fever, chills, cp, sob, nvd, dysuria. She takes amlodipine and lisinopril at home. Past History - Medical History Allergies/Adverse Reactions: Allergies Allergy/AdvReac Type Severity Reaction Status Date / Time No Known Allergies Allergy Verified 05/12/20 03:25 Home Medications: Ambulatory Orders Amlodipine Besylate [Norvasc -] 5 mg PO DAILY 02/17/18 Aspirin [ASA -] 81 mg PO DAILY 02/17/18 Lisinopril [Zestril] 5 mg PO DAILY 02/17/18 Omeprazole 20 mg PO DAILY 06/02/18 Anemia: No Asthma: No Cancer: No Cardiac Disorders: Yes (aortic regurgitation, mitral valve insufficiency.) CVA: Yes COPD: No CHF: No DVT: No Dementia: No GI Disorders: Yes (gastritis;STOMACH POLYP; HEMORRHOIDS) HTN: Yes Hypercholesterolemia: No Liver Disease: No Seizures: No Thyroid Disease: No - Surgical History Abdominal Surgery: Yes Appendectomy: No Cardiac Surgery: No Cholecystectomy: No Lung Surgery: No Neurologic Surgery: No Orthopedic Surgery: No - Reproductive History Is Patient Now?: No - Immunization History Immunization Up to Date: Yes - Psycho-Social/Smoking History Smoking Status: No Smoking History: Former smoker Years of Tobacco Use: 0 Have you smoked in the past 12 months: No Number of Cigarettes Smoked Daily: 0 Cigars Per Day: 0 Information on smoking cessation initiated: No - Substance Abuse Hx (Audit-C & DAST Scrn) How often the patient has a drink containing alcohol: Never Score: In Men: 4 or > Positive; In Women: 3 or > Positive: 0 Screen Result (Pos requires Nsg. Audit-10AR): Negative In the last yr the pt used illegal drug/Rx for NonMed reason: No Score: Yes response is considered Positive: 0 Screen Result (Positive result requires Nsg. DAST-10): Negative Review of Systems - Review of Systems Constitutional: No: Chills, Fever HEENTM: No: Recent change in vision, Double Vision Respiratory: No: Orthopnea, Shortness of Breath, Productive cough Cardiac (ROS): Yes: Lightheadedness. No: Chest Pain, Palpitations, Chest Tightness ABD/GI: No: Constipated, Diarrhea, Nausea, Poor Fluid Intake, Vomiting : No: Burning, Dysuria Musculoskeletal: No: Joint Pain, Joint Swelling Integumentary: No: Dryness, Erythema, Flushing Neurological: Yes: Headache. No: Seizure, Tremors, Dizziness Psychiatric: No: Anxiety, Depression, Mood Swings Endocrine: No: Intolerance to Cold, Intolerance to Heat *Physical Exam - Vital Signs Last Vital Signs Temp Pulse Resp BP Pulse Ox 98.6 F 72 18 152/72 100 05/12/20 03:24 05/12/20 03:24 05/12/20 03:24 05/12/20 03:24 05/12/20 03:24 - Physical Exam General Appearance: Yes: Appropriately Dressed. No: Apparent Distress, Disheveled HEENT: positive: EOMI, Normal Voice Neck: negative: Tender, Rigid Respiratory/Chest: positive: Lungs Clear, Normal Breath Sounds. negative: Chest Tender, Respiratory Distress Cardiovascular: positive: Regular Rhythm, Regular Rate, S1, S2 Gastrointestinal/Abdominal: positive: Flat, Soft. negative: Tender Musculoskeletal: positive: Normal Inspection. negative: CVA Tenderness Extremity: positive: Normal Capillary Refill, Normal Inspection, Normal Range of Motion Integumentary: positive: Normal Color, Dry, Warm Neurologic: positive: Fully Oriented, Alert, Normal Mood/Affect ED Treatment Course - LABORATORY CBC & Chemistry Diagram: 05/12/20 05:45 05/12/20 05:45 Medical Decision Making - Medical Decision Making 79 yo female with PMH of HTN, mitral valve pathology (unknown dx), CVA presents with hypertension measured 180s/110s at home. She endorses a headache and states she is feeling unwell. EKG shows 1st degree. She is given 1g tylenol CBC CMP Troponin CT head Discharge - Discharge Information Problems reviewed: Yes Clinical Impression/Diagnosis: Elevated blood pressure reading Headache Qualifiers: Headache type: unspecified Headache chronicity pattern: acute headache Intractability: not intractable Qualified Code(s): R51 - Headache Condition: Improved Disposition: HOME - Admission No - Follow up/Referral Referrals: Matheus Rick MD [Primary Care Provider] - - Patient Discharge Instructions Patient Printed Discharge Instructions: DI for Headache Additional Instructions: Your workup did not show anything concerning Take tylenol or ibuprofen if you have headache Drink lots of water Follow up with your primary care doctor --- León trabajo no mostr nada relacionado [facility] tylenol o ibuprofeno si tiene dolor de mirlande Beber jl agua Fiona un seguimiento con león mdico de atencin primaria. Print Language: SWAZI - Post Discharge Activity
--- NOTE | 2020-05-12 04:47 | PDOC ---
Attending Attestation - Resident Resident Name: Shaw Ziegler - ED Attending Attestation I have performed the following: I have examined & evaluated the patient, The case was reviewed & discussed with the resident, I agree w/resident's findings & plan - HPI HPI: 05/12/20 06:31 see resident hpi - Physicial Exam PE: 05/12/20 06:31 see resident exam - Medical Decision Making 05/12/20 06:31 79-year-old female with complaints of generalized headache and elevated blood pressure now improved with some residual cephalgia Plan for labs, CT scan and analgesia with results pending as well as reevaluation, signed out to oncoming shift Discharge - Discharge Information Problems reviewed: Yes Clinical Impression/Diagnosis: Elevated blood pressure reading, Headache - Follow up/Referral Referrals: Matheus Rick MD [Primary Care Provider] - - Patient Discharge Instructions - Post Discharge Activity
[2020-05-12] MEDS ORDERED: ACETAMINOPHEN 1000 MG/100 ML VIAL (NON FORMULARY) IVPB ONE (05:26)
[2020-05-12] MEDS ORDERED: ACETAMINOPHEN INJECTION 100 ML IVPB ONE (05:38)
[2020-05-12 06:28] LABS: BASO % 0.6 % (0-2.0); EOS % 1.3 % (0-4.5); HEMATOCRIT 37.5 % (32.4-45.2); HEMOGLOBIN 12.7 GM/dL (10.7-15.3); LYMPH % 24.7 % (8-40); MCH 33.1 pg (25.7-33.7); MCHC 33.8 g/dl (32.0-36.0); MEAN CELL VOLUME 98.1 fl (80-96); MEAN PLT VOLUME 8.2 fl (7.5-11.1); MONO % 6.2 % (3.8-10.2); NEUT % 67.2 % (42.8-82.8); PLATELET COUNT 234 K/MM3 (134-434); RBC 3.82 M/mm3 (3.60-5.2); RDW 12.8 % (11.6-15.6); WHITE BLOOD COUNT 7.3 K/mm3 (4.0-10.0)
[2020-05-12 07:01] LABS: ALBUMIN 3.5 g/dl (3.4-5.0); ALK PHOS 77 U/L (45-117); ANION GAP 4 MMOL/L (8-16); BILIRUBIN,TOTAL 0.4 mg/dL (0.2-1); BLOOD UREA NITROGEN 18.5 mg/dL (7-18); CALCIUM 9.2 mg/dL (8.5-10.1); CHLORIDE 107 mmol/L (98-107); CO2 30 mmol/L (21-32); GLUCOSE,RANDOM 106 mg/dL (74-106); POTASSIUM 4.6 mmol/L (3.5-5.1); SGOT/AST 22 U/L (15-37); SGPT/ALT 21 U/L (13-61); SODIUM 141 mmol/L (136-145)
--- NOTE | 2020-05-12 07:36 | PDOC ---
*Physical Exam - Vital Signs Last Vital Signs Temp Pulse Resp BP Pulse Ox 98.5 F 62 17 139/61 97 05/12/20 06:54 05/12/20 06:54 05/12/20 06:54 05/12/20 06:54 05/12/20 06:54 ED Treatment Course - LABORATORY CBC & Chemistry Diagram: 05/12/20 05:45 05/12/20 05:45 - ADDITIONAL ORDERS Additional order review: Laboratory Results 05/12/20 05:45 Sodium 141 Potassium 4.6 Chloride 107 Carbon Dioxide 30 Anion Gap 4 L BUN 18.5 H Creatinine 1.0 Est GFR (CKD-EPI)AfAm 62.05 Est GFR (CKD-EPI)NonAf 53.54 Random Glucose 106 Calcium 9.2 Total Bilirubin 0.4 AST 22 ALT 21 Alkaline Phosphatase 77 Troponin I < 0.02 Total Protein 7.0 Albumin 3.5 05/12/20 05:45 RBC 3.82 MCV 98.1 H MCHC 33.8 RDW 12.8 MPV 8.2 Neutrophils % 67.2 Lymphocytes % 24.7 D Monocytes % 6.2 Eosinophils % 1.3 Basophils % 0.6 - Medications Given in the ED: ED Medications Discontinued Medications Generic Name Dose Route Start Last Admin Trade Name Freq PRN Reason Stop Dose Admin Acetaminophen 1,000 mg 05/12/20 05:26 05/12/20 06:05 Ofirmev Injection - IVPB 05/12/20 05:27 1,000 mg ONCE ONE Administration Medical Decision Making - Medical Decision Making 05/12/20 07:35 79 yo female with PMH of hypertension, mitral valve pathology, cva presents with 3 day hx of hypertension and headache likely d/t migraine. Head CT no acute bleed/infarct/mass. Labs non concerning. [place] better after tylenol DC w PCP f/u, supportive care Discharge - Discharge Information Problems reviewed: Yes Clinical Impression/Diagnosis: Elevated blood pressure reading Headache Qualifiers: Headache type: unspecified Headache chronicity pattern: acute headache Intractability: not intractable Qualified Code(s): R51 - Headache Condition: Improved Disposition: HOME - Follow up/Referral Referrals: Matheus Rick MD [Primary Care Provider] - - Patient Discharge Instructions Patient Printed Discharge Instructions: DI for Headache Additional Instructions: Your workup did not show anything concerning Take tylenol or ibuprofen if you have headache Drink lots of water Follow up with your primary care doctor --- León trabajo no mostr nada relacionado [employer] tylenol o ibuprofeno si tiene dolor de mir[place]e [place] un seguimiento con león mdico de atencin primaria. Print Language: MARTINIQUAIS - Post Discharge Activity
[2020-05-12 08:21] VITALS: BP 141/58; PULSE 56; TEMP 98.9
--- NOTE | 2020-05-12 10:43 | EKG ---
Test Reason : Blood Pressure : / mmHG Vent. Rate : 070 BPM Atrial Rate : 070 BPM P-R Int : 210 ms QRS Dur : 082 ms QT Int : 394 ms P-R-T Axes : 076 016 059 degrees QTc Int : 425 ms SINUS RHYTHM WITH SINUS ARRHYTHMIA WITH 1ST DEGREE A-V BLOCK OTHERWISE NORMAL ECG WHEN COMPARED WITH ECG OF 02-JUN-2018 09:25, [place] INTERVAL HAS INCREASED Confirmed by JAMES PORTILLO, KHLOE ([id number]) on 05/12/2020 10:43:09 AM Referred By: Confirmed By:KHLOE RAMIREZ MD
== END 2020-05-12 08:23 | disposition home or self-care (01) ==
LOC: JER 03:20
PROC: 3E0333Z Introduction of Anti-inflammatory into Peripheral Vein, Percutaneous Approach (ICD-10-PCS; principal; 2020-05-12)
DX: R51 Headache (principal); R03.0 Elevated blood-pressure reading, without diagnosis of hypertension
CPT/HCPCS: 36415; 70450-TC; 80053; 84484; 85025; 93005; 93010; 99285-25; J0131

== ENCOUNTER 2021-01-17 22:50 | Inpatient (IN) | payer OTHER ==
[2021-01-18] MEDS ORDERED: ACETAMINOPHEN 500 MG TABLET (FP) PO ONE (00:05)
[2021-01-18] MEDS ORDERED: ACETAMINOPHEN 500 MG TABLET (FP) ONE (00:37)
[2021-01-18 01:41] LABS: BASO % 0.5 % (0-2.0); EOS % 1.2 % (0-4.5); HEMATOCRIT 36.7 % (32.4-45.2); HEMOGLOBIN 12.3 GM/dL (10.7-15.3); LYMPH % 27.8 % (8-40); MCH 32.9 pg (25.7-33.7); MCHC 33.5 g/dl (32.0-36.0); MEAN CELL VOLUME 98.1 fl (80-96); MEAN PLT VOLUME 8.3 fl (7.5-11.1); MONO % 8.7 % (3.8-10.2); NEUT % 61.8 % (42.8-82.8); PLATELET COUNT 240 K/MM3 (134-434); RBC 3.74 M/mm3 (3.60-5.2); WHITE BLOOD COUNT 8.8 K/mm3 (4.0-10.0)
[2021-01-18 01:47] LABS: INR 0.99 (0.83-1.09)
[2021-01-18 01:56] LABS: CHLORIDE 107 mmol/L (98-107); SODIUM 142 mmol/L (136-145)
[2021-01-18 01:58] LABS: CALCIUM 9.3 mg/dL (8.5-10.1)
[2021-01-18 01:59] LABS: ALBUMIN 3.5 g/dl (3.4-5.0); ANION GAP 3 MMOL/L (8-16); BLOOD UREA NITROGEN 18.6 mg/dL (7-18); CO2 31 mmol/L (21-32); GLUCOSE,RANDOM 97 mg/dL (74-106)
[2021-01-18 02:02] LABS: CREATININE 0.9 mg/dL (0.55-1.3); SGOT/AST 18 U/L (15-37); SGPT/ALT 18 U/L (13-61)
[2021-01-18 02:04] LABS: BILIRUBIN,TOTAL 0.4 mg/dL (0.2-1); TOT PROT 7.3 g/dl (6.4-8.2)
[2021-01-18 02:05] LABS: ALK PHOS 80 U/L (45-117)
[2021-01-18] MEDS ORDERED: ACETAMINOPHEN 1000 MG/100 ML VIAL (NON FORMULARY) IVPB PRN (06:41)
[2021-01-18 06:45] LABS: BASO % 2.3 % (0-2.0); EOS % 0.5 % (0-4.5); HEMATOCRIT 36.1 % (32.4-45.2); HEMOGLOBIN 12.3 GM/dL (10.7-15.3); LYMPH % 22.1 % (8-40); MEAN PLT VOLUME 8.4 fl (7.5-11.1); MONO % 4.8 % (3.8-10.2); NEUT % 70.3 % (42.8-82.8); PLATELET COUNT 238 K/MM3 (134-434); RBC 3.72 M/mm3 (3.60-5.2); RDW 12.9 % (11.6-15.6); WHITE BLOOD COUNT 8.9 K/mm3 (4.0-10.0)
[2021-01-18 07:12] LABS: CALCIUM 9.1 mg/dL (8.5-10.1)
[2021-01-18 07:13] LABS: ALBUMIN 3.4 g/dl (3.4-5.0); BLOOD UREA NITROGEN 15.3 mg/dL (7-18)
[2021-01-18 07:16] LABS: CREATININE 0.8 mg/dL (0.55-1.3)
[2021-01-18 07:18] LABS: BILIRUBIN,TOTAL 0.5 mg/dL (0.2-1); TOT PROT 7.1 g/dl (6.4-8.2)
[2021-01-18] MEDS ORDERED: ACETAMINOPHEN 1000 MG/100 ML VIAL (NON FORMULARY) IVPB ONE (07:23)
[2021-01-18] MEDS ORDERED: ACETAMINOPHEN INJECTION 100 ML IVPB ONE (07:30)
[2021-01-18] MEDS: DEXTROSE 5%-0.45% SALINE 1,000 ML IV SCH ×2 (07:46→22:08)
[2021-01-18] MEDS ORDERED: MUPIROCIN 2% TOPICAL OINTMENT FOR DECOLONIZATION NS SCH (10:00)
[2021-01-18] MEDS: amLODIPine BESYLATE 5 MG TABLET (FP) PO SCH (11:33)
[2021-01-18] MEDS: LISINOPRIL 5 MG TABLET PO SCH (11:33)
[2021-01-18] MEDS ORDERED: CHLORHEXIDINE GLUCONATE 4% CLEANSER FOR DECOLONIZATION TP SCH (22:00)
[2021-01-19 06:27] VITALS: BMI 26.2
[2021-01-19 07:41] LABS: HEMATOCRIT 32.9 % (32.4-45.2); HEMOGLOBIN 11.2 GM/dL (10.7-15.3); MCH 33.4 pg (25.7-33.7); MEAN CELL VOLUME 98.1 fl (80-96); MEAN PLT VOLUME 8.4 fl (7.5-11.1); PLATELET COUNT 218 K/MM3 (134-434); RBC 3.36 M/mm3 (3.60-5.2); WHITE BLOOD COUNT 7.5 K/mm3 (4.0-10.0)
[2021-01-19 08:02] LABS: ALBUMIN 2.8 g/dl (3.4-5.0); BLOOD UREA NITROGEN 12.5 mg/dL (7-18)
[2021-01-19 08:05] LABS: CALCIUM 8.6 mg/dL (8.5-10.1)
[2021-01-19 08:07] LABS: CREATININE 0.8 mg/dL (0.55-1.3)
[2021-01-19 08:08] LABS: BILIRUBIN,TOTAL 0.4 mg/dL (0.2-1); TOT PROT 5.9 g/dl (6.4-8.2)
[2021-01-19] MEDS: LISINOPRIL 5 MG TABLET PO SCH (09:43)
[2021-01-19] MEDS: amLODIPine BESYLATE 5 MG TABLET (FP) PO SCH (09:43)
[2021-01-19] MEDS ORDERED: BACITRACIN 15 GM TUBE TOPICAL OINTMENT ONE (12:15)
[2021-01-19] MEDS ORDERED: GENTAMICIN SO4 80 MG/2 ML VIAL ONE ×2 (12:15→12:24)
[2021-01-19] MEDS ORDERED: THROMBIN (BOVINE) 5,000 UNIT VIAL TP ONE (12:16)
[2021-01-19] MEDS ORDERED: ceFAZolin SODIUM 1 GM VIAL ONE ×2 (12:24→14:14)
[2021-01-19] MEDS ORDERED: LIDOCAINE HCL 2% JELLY 10 ML CARTRIDGE ONE (12:26)
[2021-01-19] MEDS ORDERED: ONDANSETRON 4 MG/2 ML VIAL IVPUSH PRN ×3 (13:02→19:40)
[2021-01-19] MEDS ORDERED: LACTATED RINGERS SOLUTION 1,000 ML IV SCH ×2 (13:15→15:30)
[2021-01-19] MEDS ORDERED: fentaNYL CITRATE 250 MCG/5 ML VIAL ONE (13:25)
[2021-01-19] MEDS ORDERED: LIDOCAINE HCL/PF 2% SDV 5ML VIAL ONE (13:25)
[2021-01-19] MEDS ORDERED: PROPOFOL 20 ML ONE (13:26)
[2021-01-19] MEDS ORDERED: ROCURONIUM BROMIDE 50 MG/5 ML SYRINGE ONE (13:26)
[2021-01-19] MEDS ORDERED: DEXAMETHASONE SOD PHOSPHATE 4 MG/1 ML VIAL ONE (14:12)
[2021-01-19] MEDS ORDERED: VANCOMYCIN 1,000 MG VIAL (RESTRICTED TO ID ONLY) ONE (14:14)
[2021-01-19] MEDS ORDERED: ceFAZolin SODIUM 1 GM VIAL IVPB ONE (14:17)
[2021-01-19] MEDS ORDERED: GLYCOPYRROLATE 0.2 MG/1 ML VIAL ONE (14:33)
[2021-01-19] MEDS ORDERED: NEOSTIGMINE METHYLSULFATE 0.5 MG/ML - 10 ML MDV ONE (14:35)
[2021-01-19] MEDS ORDERED: PROMETHAZINE HCL 25 MG/1 ML VIAL IVPUSH PRN (15:19)
[2021-01-19] MEDS ORDERED: DEXTROSE 5%-0.45% SALINE 1,000 ML IV SCH (15:38)
[2021-01-19] MEDS: ACETAMINOPHEN 1000 MG/100 ML VIAL (NON FORMULARY) IVPB PRN (18:18)
[2021-01-19] MEDS ORDERED: oxyCODONE HCL 5 MG TABLET PO PRN (19:40)
[2021-01-19] MEDS ORDERED: CEFAZOLIN 2 GM in DEXTROSE 5%-WATER - 50 ML IVPB SCH (20:00)
[2021-01-19] MEDS: oxyCODONE HCL 5 MG TABLET PO PRN (21:23)
[2021-01-19] MEDS: MUPIROCIN 2% TOPICAL OINTMENT FOR DECOLONIZATION NS SCH (21:24)
[2021-01-19] MEDS: CEFAZOLIN 2 GM/D5W 2 GM/50 ML ML IVPB SCH (21:24)
[2021-01-19] MEDS: CHLORHEXIDINE GLUCONATE 4% CLEANSER FOR DECOLONIZATION TP SCH (21:24)
[2021-01-20] MEDS: LACTATED RINGERS SOLUTION 1,000 ML IV SCH ×2 (02:22→21:50)
[2021-01-20] MEDS: CEFAZOLIN 2 GM/D5W 2 GM/50 ML ML IVPB SCH ×2 (02:22→08:44)
[2021-01-20] MEDS: oxyCODONE HCL 5 MG TABLET PO PRN (04:02)
[2021-01-20 06:56] LABS: BASO % 0.6 % (0-2.0); HEMATOCRIT 35.3 % (32.4-45.2); HEMOGLOBIN 12.3 GM/dL (10.7-15.3); MCH 33.3 pg (25.7-33.7); MCHC 34.8 g/dl (32.0-36.0); MEAN CELL VOLUME 95.9 fl (80-96); MEAN PLT VOLUME 8.4 fl (7.5-11.1); MONO % 5.3 % (3.8-10.2); NEUT % 86.1 % (42.8-82.8); PLATELET COUNT 229 K/MM3 (134-434); RBC 3.68 M/mm3 (3.60-5.2); RDW 12.6 % (11.6-15.6); WHITE BLOOD COUNT 11.8 K/mm3 (4.0-10.0)
[2021-01-20 07:12] LABS: BLOOD UREA NITROGEN 8.3 mg/dL (7-18); CALCIUM 8.6 mg/dL (8.5-10.1)
[2021-01-20 07:13] LABS: MAGNESIUM 1.9 mg/dL (1.8-2.4)
[2021-01-20 07:15] LABS: CREATININE 0.8 mg/dL (0.55-1.3); PHOSPHOROUS 3.8 mg/dL (2.5-4.9)
[2021-01-20 07:16] LABS: BILIRUBIN,TOTAL 0.4 mg/dL (0.2-1); TOT PROT 6.5 g/dl (6.4-8.2)
[2021-01-20 07:57] LABS: N-TERMINAL BNP 135.6 pg/ml (5-450)
[2021-01-20] MEDS: MUPIROCIN 2% TOPICAL OINTMENT FOR DECOLONIZATION NS SCH ×2 (09:35→21:50)
[2021-01-20] MEDS ORDERED: LISINOPRIL 5 MG TABLET PO SCH (10:00)
[2021-01-20] MEDS ORDERED: amLODIPine BESYLATE 5 MG TABLET (FP) PO SCH (10:00)
[2021-01-20] MEDS: ACETAMINOPHEN 1000 MG/100 ML VIAL (NON FORMULARY) IVPB PRN (17:25)
[2021-01-20] MEDS: CHLORHEXIDINE GLUCONATE 4% CLEANSER FOR DECOLONIZATION TP SCH (21:50)
[2021-01-20] MEDS ORDERED: ONDANSETRON 4 MG/2 ML VIAL IVPUSH PRN (23:21)
[2021-01-20] MEDS ORDERED: PROMETHAZINE HCL 25 MG/1 ML VIAL IVPUSH PRN (23:21)
[2021-01-20] MEDS ORDERED: oxyCODONE HCL 5 MG TABLET PO PRN (23:21)
[2021-01-21] MEDS: LACTATED RINGERS SOLUTION 1,000 ML IV SCH (02:04)
[2021-01-21] MEDS: ACETAMINOPHEN 325 MG TABLET (FP) PO PRN ×4 (03:17→23:00)
[2021-01-21 08:59] LABS: BASO % 0.4 % (0-2.0); EOS % 0.4 % (0-4.5); HEMOGLOBIN 11.6 GM/dL (10.7-15.3); LYMPH % 15.8 % (8-40); MCH 33.1 pg (25.7-33.7); MCHC 34.1 g/dl (32.0-36.0); MEAN CELL VOLUME 97.2 fl (80-96); MEAN PLT VOLUME 8.3 fl (7.5-11.1); MONO % 6.1 % (3.8-10.2); NEUT % 77.3 % (42.8-82.8); PLATELET COUNT 210 K/MM3 (134-434); WHITE BLOOD COUNT 12.6 K/mm3 (4.0-10.0)
[2021-01-21] MEDS: LISINOPRIL 5 MG TABLET PO SCH (09:17)
[2021-01-21] MEDS: amLODIPine BESYLATE 5 MG TABLET (FP) PO SCH (09:17)
[2021-01-21 09:32] LABS: CALCIUM 8.9 mg/dL (8.5-10.1)
[2021-01-21 09:33] LABS: ALBUMIN 2.7 g/dl (3.4-5.0)
[2021-01-21 09:36] LABS: CREATININE 0.9 mg/dL (0.55-1.3); PHOSPHOROUS 3.2 mg/dL (2.5-4.9)
[2021-01-21 09:37] LABS: BILIRUBIN,TOTAL 0.3 mg/dL (0.2-1); TOT PROT 6.1 g/dl (6.4-8.2)
[2021-01-21 09:43] LABS: MAGNESIUM 2.2 mg/dL (1.8-2.4)
[2021-01-22] MEDS: oxyCODONE HCL 5 MG TABLET PO PRN ×3 (01:10→21:43)
[2021-01-22] MEDS: LACTATED RINGERS SOLUTION 1,000 ML IV SCH ×2 (05:40→23:47)
[2021-01-22] MEDS: LISINOPRIL 5 MG TABLET PO SCH (09:08)
[2021-01-22] MEDS: amLODIPine BESYLATE 5 MG TABLET (FP) PO SCH (09:08)
[2021-01-22] MEDS: POLYETHYLENE GLYCOL 3350 119 GM BTL PO SCH (10:10)
[2021-01-22] MEDS: ACETAMINOPHEN 325 MG TABLET (FP) PO PRN (19:09)
[2021-01-22] MEDS: SENNOSIDES 8.6MG TABLET (FP) PO SCH (21:43)
[2021-01-23] MEDS: ACETAMINOPHEN 325 MG TABLET (FP) PO PRN ×2 (03:10→09:10)
[2021-01-23 09:10] LABS: HEMATOCRIT 33.4 % (32.4-45.2); HEMOGLOBIN 11.4 GM/dL (10.7-15.3); MCH 33.5 pg (25.7-33.7); MCHC 34.2 g/dl (32.0-36.0); MEAN CELL VOLUME 97.9 fl (80-96); MEAN PLT VOLUME 8.5 fl (7.5-11.1); PLATELET COUNT 246 K/MM3 (134-434); RBC 3.41 M/mm3 (3.60-5.2); RDW 13.2 % (11.6-15.6)
[2021-01-23] MEDS: amLODIPine BESYLATE 5 MG TABLET (FP) PO SCH (09:11)
[2021-01-23] MEDS: LISINOPRIL 5 MG TABLET PO SCH (09:11)
[2021-01-23] MEDS: POLYETHYLENE GLYCOL 3350 119 GM BTL PO SCH (09:11)
[2021-01-23 09:41] LABS: BILIRUBIN,TOTAL 0.4 mg/dL (0.2-1); BLOOD UREA NITROGEN 11.5 mg/dL (7-18)
[2021-01-23 09:43] LABS: TOT PROT 6.3 g/dl (6.4-8.2)
[2021-01-23 09:44] LABS: CREATININE 0.7 mg/dL (0.55-1.3)
[2021-01-23 09:52] LABS: ALBUMIN 2.7 g/dl (3.4-5.0); CALCIUM 8.9 mg/dL (8.5-10.1)
[2021-01-23] MEDS: oxyCODONE HCL 5 MG TABLET PO PRN (19:40)
[2021-01-23] MEDS: SENNOSIDES 8.6MG TABLET (FP) PO SCH (21:38)
[2021-01-24] MEDS: ACETAMINOPHEN 325 MG TABLET (FP) PO PRN ×3 (05:53→21:29)
[2021-01-24] MEDS: LISINOPRIL 5 MG TABLET PO SCH (10:09)
[2021-01-24] MEDS: amLODIPine BESYLATE 5 MG TABLET (FP) PO SCH (10:09)
[2021-01-24] MEDS: POLYETHYLENE GLYCOL 3350 119 GM BTL PO SCH (10:10)
[2021-01-24] MEDS: SENNOSIDES 8.6MG TABLET (FP) PO SCH (21:26)
[2021-01-25] MEDS ORDERED: BACITRACIN 15 GM TUBE TOPICAL OINTMENT TP SCH (10:00)
[2021-01-25] MEDS: amLODIPine BESYLATE 5 MG TABLET (FP) PO SCH (10:21)
[2021-01-25] MEDS: LISINOPRIL 5 MG TABLET PO SCH (10:21)
[2021-01-25] MEDS: POLYETHYLENE GLYCOL 3350 119 GM BTL PO SCH (10:55)
[2021-01-25 14:11] VITALS: BP 146/66; PULSE 77; TEMP 97.9
== END 2021-01-25 18:10 | disposition home health service (06) | DRG 25 ==
LOC: JER 22:50 → JERBED 01-18 02:40 → J4W 01-18 18:36 → JICU 01-19 17:20 → J6S 01-20 23:18
PROVIDERS: ADMIT Hospitalist; ATTEND Family Medicine
PROC: 00C00ZZ Extirpation of Matter from Brain, Open Approach (ICD-10-PCS; principal; 2021-01-19 13:00)
DX: S06.5X0A Traumatic subdural hemorrhage without loss of consciousness, initial encounter (principal); G93.5 Compression of brain; I10 Essential (primary) hypertension; G43.909 Migraine, unspecified, not intractable, without status migrainosus; Z20.822 Contact with and (suspected) exposure to COVID-19; F41.9 Anxiety disorder, unspecified; F32.9 Major depressive disorder, single episode, unspecified; E66.3 Overweight; Z68.26 Body mass index [BMI] 26.0-26.9, adult; E55.9 Vitamin D deficiency, unspecified; R73.03 Prediabetes; K29.60 Other gastritis without bleeding; Y93.9 Activity, unspecified; W06.XXXA Fall from bed, initial encounter; Y92.009 Unspecified place in unspecified non-institutional (private) residence as the place of occurrence of the external cause; Y99.8 Other external cause status
CPT/HCPCS: 36415; 70450-TC; 70544-TC; 70551-TC; 71045-TC-FY; 80053; 82550; 83735; 83880; 84100; 84443; 84484; 85025; 85027; 85610; 85730; 86850; 86900; 86901; 93005; 93010; 93970-TC; 94010; 94760; 97116-GP; 97162-GP; 99285-25; C9803; J0131; U0003; U0005

== ENCOUNTER 2021-01-28 18:47 | Inpatient (IN) | payer OTHER ==
[2021-01-28 20:44] LABS: BASO % 0.9 % (0-2.0); HEMATOCRIT 36.6 % (32.4-45.2); HEMOGLOBIN 12.1 GM/dL (10.7-15.3); LYMPH % 15.9 % (8-40); MCH 32.5 pg (25.7-33.7); MEAN CELL VOLUME 98.7 fl (80-96); MEAN PLT VOLUME 7.6 fl (7.5-11.1); MONO % 5.8 % (3.8-10.2); NEUT % 76.4 % (42.8-82.8); PLATELET COUNT 325 K/MM3 (134-434); RBC 3.71 M/mm3 (3.60-5.2); RDW 13.4 % (11.6-15.6); WHITE BLOOD COUNT 11.2 K/mm3 (4.0-10.0)
[2021-01-28 20:55] LABS: BLOOD UREA NITROGEN 14.3 mg/dL (7-18); CALCIUM 9.5 mg/dL (8.5-10.1)
[2021-01-28 20:58] LABS: CREATININE 0.9 mg/dL (0.55-1.3)
[2021-01-28 21:00] LABS: BILIRUBIN,TOTAL 0.3 mg/dL (0.2-1); TOT PROT 7.4 g/dl (6.4-8.2)
[2021-01-28 21:01] LABS: ALBUMIN 3.3 g/dl (3.4-5.0)
[2021-01-28 21:24] LABS: INR 1.08 (0.83-1.09); PROTHROMBIN TIME (PATIENT) 13.2 SEC (9.7-13.0)
[2021-01-28 21:26] LABS: ACTIVATED PTT 28.8 SECONDS (25.2-36.5)
[2021-01-28] MEDS ORDERED: levETIRAcetam 500 MG/5 ML INJECTION VIAL IVPB ONE ×2 (23:08→23:12)
[2021-01-29 00:51] VITALS: BMI 26.0
[2021-01-29] MEDS ORDERED: SODIUM CHLORIDE 1,000 ML IV SCH (04:45)
[2021-01-29 07:00] LABS: BASO % 0.7 % (0-2.0); EOS % 1.7 % (0-4.5); HEMATOCRIT 31.1 % (32.4-45.2); HEMOGLOBIN 10.7 GM/dL (10.7-15.3); LYMPH % 28.4 % (8-40); MCH 33.4 pg (25.7-33.7); MCHC 34.5 g/dl (32.0-36.0); MONO % 6.7 % (3.8-10.2); NEUT % 62.5 % (42.8-82.8); PLATELET COUNT 289 K/MM3 (134-434); RDW 13.3 % (11.6-15.6); WHITE BLOOD COUNT 8.3 K/mm3 (4.0-10.0)
[2021-01-29 07:05] LABS: INR 1.09 (0.83-1.09); PROTHROMBIN TIME (PATIENT) 13.4 SEC (9.7-13.0)
[2021-01-29 07:07] LABS: ACTIVATED PTT 27.8 SECONDS (25.2-36.5)
[2021-01-29 07:15] LABS: CALCIUM 8.3 mg/dL (8.5-10.1)
[2021-01-29 07:16] LABS: BLOOD UREA NITROGEN 11.5 mg/dL (7-18); MAGNESIUM 2.1 mg/dL (1.8-2.4)
[2021-01-29 07:19] LABS: CREATININE 0.8 mg/dL (0.55-1.3); PHOSPHOROUS 3.3 mg/dL (2.5-4.9)
[2021-01-29 07:21] LABS: BILIRUBIN,TOTAL 0.6 mg/dL (0.2-1); TOT PROT 5.9 g/dl (6.4-8.2)
[2021-01-29 07:26] LABS: ALBUMIN 2.7 g/dl (3.4-5.0)
[2021-01-29] MEDS: levETIRAcetam 500 MG/5 ML INJECTION VIAL IVPB SCH ×2 (09:48→21:24)
[2021-01-29] MEDS ORDERED: DEXTROSE 5%-NORMAL SALINE 1,000 ML IV SCH (10:00)
[2021-01-29] MEDS: INSULIN SLIDING SCALE (NOVOLOG) 1 VIAL SQ SCH ×3 (12:26→21:25)
[2021-01-29] MEDS: MUPIROCIN 2% TOPICAL OINTMENT FOR DECOLONIZATION NS SCH ×2 (19:26→21:24)
[2021-01-29] MEDS: CHLORHEXIDINE GLUCONATE 4% CLEANSER FOR DECOLONIZATION TP SCH (21:24)
[2021-01-30] MEDS: INSULIN SLIDING SCALE (NOVOLOG) 1 VIAL SQ SCH ×4 (06:05→21:10)
[2021-01-30 06:45] LABS: HEMATOCRIT 35.5 % (32.4-45.2); MCHC 33.8 g/dl (32.0-36.0); MEAN CELL VOLUME 97.8 fl (80-96); MEAN PLT VOLUME 7.3 fl (7.5-11.1); PLATELET COUNT 307 K/MM3 (134-434); RBC 3.63 M/mm3 (3.60-5.2); RDW 12.9 % (11.6-15.6); WHITE BLOOD COUNT 8.3 K/mm3 (4.0-10.0)
[2021-01-30 07:43] LABS: CALCIUM 8.7 mg/dL (8.5-10.1)
[2021-01-30 07:44] LABS: ALBUMIN 2.7 g/dl (3.4-5.0); BLOOD UREA NITROGEN 12.4 mg/dL (7-18)
[2021-01-30 07:47] LABS: CREATININE 0.8 mg/dL (0.55-1.3)
[2021-01-30 07:48] LABS: BILIRUBIN,TOTAL 0.4 mg/dL (0.2-1); TOT PROT 6.3 g/dl (6.4-8.2)
[2021-01-30] MEDS: levETIRAcetam 500 MG/5 ML INJECTION VIAL IVPB SCH ×2 (10:02→21:14)
[2021-01-30] MEDS: MUPIROCIN 2% TOPICAL OINTMENT FOR DECOLONIZATION NS SCH ×2 (11:00→21:11)
[2021-01-30] MEDS: CHLORHEXIDINE GLUCONATE 4% CLEANSER FOR DECOLONIZATION TP SCH (21:11)
[2021-01-31] MEDS: INSULIN SLIDING SCALE (NOVOLOG) 1 VIAL SQ SCH ×4 (06:24→22:06)
[2021-01-31 06:52] LABS: HEMATOCRIT 35.5 % (32.4-45.2); HEMOGLOBIN 12.2 GM/dL (10.7-15.3); MCH 33.5 pg (25.7-33.7); MCHC 34.3 g/dl (32.0-36.0); MEAN CELL VOLUME 97.7 fl (80-96); MEAN PLT VOLUME 7.7 fl (7.5-11.1); PLATELET COUNT 301 K/MM3 (134-434); RBC 3.64 M/mm3 (3.60-5.2); RDW 12.8 % (11.6-15.6); WHITE BLOOD COUNT 8.6 K/mm3 (4.0-10.0)
[2021-01-31 07:06] LABS: BLOOD UREA NITROGEN 14.9 mg/dL (7-18)
[2021-01-31 07:07] LABS: ALBUMIN 2.8 g/dl (3.4-5.0); CREATININE 0.9 mg/dL (0.55-1.3); PHOSPHOROUS 2.9 mg/dL (2.5-4.9)
[2021-01-31 07:08] LABS: BILIRUBIN,TOTAL 0.3 mg/dL (0.2-1); TOT PROT 6.7 g/dl (6.4-8.2)
[2021-01-31] MEDS: levETIRAcetam 500 MG/5 ML INJECTION VIAL IVPB SCH ×2 (09:32→22:05)
[2021-01-31] MEDS: MUPIROCIN 2% TOPICAL OINTMENT FOR DECOLONIZATION NS SCH ×2 (09:32→22:06)
[2021-01-31] MEDS ORDERED: LIDOCAINE HCL 1%, 10 MG/ML (20ML VIAL) ONE (09:43)
[2021-01-31] MEDS ORDERED: VANCOMYCIN 1,000 MG VIAL (RESTRICTED TO ID ONLY) ONE (09:43)
[2021-01-31] MEDS ORDERED: GENTAMICIN SO4 80 MG/2 ML VIAL ONE (09:43)
[2021-01-31] MEDS ORDERED: THROMBIN (BOVINE) 5,000 UNIT VIAL TP ONE ×2 (10:31→11:27)
[2021-01-31] MEDS ORDERED: BACITRACIN 15 GM TUBE TOPICAL OINTMENT ONE (11:09)
[2021-01-31] MEDS ORDERED: ceFAZolin SODIUM 1 GM VIAL IVPB ONE (11:15)
[2021-01-31] MEDS ORDERED: VANCOMYCIN 1,000 MG VIAL (RESTRICTED TO ID ONLY) IVPB ONE (11:15)
[2021-01-31] MEDS ORDERED: LIDOCAINE 1%/EPI 1:100000 (50 ML MULTI DOSE VIAL) INF ONE (11:21)
[2021-01-31] MEDS ORDERED: GENTAMICIN SO4 80 MG/2 ML VIAL IVPB ONE (11:27)
[2021-01-31] MEDS ORDERED: BACITRACIN 50,000 UNITS VIAL TP ONE (11:27)
[2021-01-31] MEDS ORDERED: FUROSEMIDE 40 MG/4 ML INJECTABLE VIAL ONE (11:57)
[2021-01-31] MEDS ORDERED: MANNITOL 25% 12.5 GM/50 ML VIAL IVPB ONE (12:00)
[2021-01-31] MEDS ORDERED: ACETAMINOPHEN WITH CODEINE 300MG/30MG TABLET PO PRN (12:25)
[2021-01-31] MEDS ORDERED: ONDANSETRON 4 MG/2 ML VIAL IVPUSH PRN (12:25)
[2021-01-31] MEDS: DOCUSATE SODIUM 100 MG CAPSULE (FP) PO SCH ×2 (14:30→22:06)
[2021-01-31] MEDS: LACTATED RINGERS SOLUTION 1,000 ML/1,000 ML INFUS.BAG IV SCH (15:28)
[2021-01-31] MEDS: DEXAMETHASONE SOD PHOSPHATE 4 MG/1 ML VIAL IVPUSH SCH ×2 (15:49→22:05)
[2021-01-31] MEDS: CEFAZOLIN 1 GM/D5W 1 GM/50 ML BAG IVPB SCH (17:41)
[2021-01-31] MEDS ORDERED: ACETAMINOPHEN 1000 MG/100 ML VIAL (NON FORMULARY) IVPB ONE (19:57)
[2021-01-31] MEDS ORDERED: CHLORHEXIDINE GLUCONATE 4% CLEANSER FOR DECOLONIZATION TP SCH (22:00)
[2021-01-31] MEDS ORDERED: MUPIROCIN 2% TOPICAL OINTMENT FOR DECOLONIZATION NS SCH (22:00)
[2021-01-31] MEDS: CHLORHEXIDINE GLUCONATE 4% CLEANSER FOR DECOLONIZATION TP SCH (22:06)
[2021-02-01] MEDS: CEFAZOLIN 1 GM/D5W 1 GM/50 ML BAG IVPB SCH ×2 (01:15→10:32)
[2021-02-01] MEDS: DEXAMETHASONE SOD PHOSPHATE 4 MG/1 ML VIAL IVPUSH SCH ×4 (02:58→21:13)
[2021-02-01] MEDS: DOCUSATE SODIUM 100 MG CAPSULE (FP) PO SCH ×3 (05:53→21:13)
[2021-02-01] MEDS: INSULIN SLIDING SCALE (NOVOLOG) 1 VIAL SQ SCH ×4 (06:17→21:26)
[2021-02-01 07:40] LABS: HEMATOCRIT 37.4 % (32.4-45.2); HEMOGLOBIN 12.6 GM/dL (10.7-15.3); MCH 33.1 pg (25.7-33.7); MCHC 33.7 g/dl (32.0-36.0); MEAN CELL VOLUME 98.3 fl (80-96); MEAN PLT VOLUME 8.1 fl (7.5-11.1); PLATELET COUNT 328 K/MM3 (134-434); RBC 3.81 M/mm3 (3.60-5.2); RDW 13.2 % (11.6-15.6); WHITE BLOOD COUNT 11.4 K/mm3 (4.0-10.0)
[2021-02-01 08:15] LABS: ALBUMIN 2.9 g/dl (3.4-5.0); BLOOD UREA NITROGEN 10.1 mg/dL (7-18); CALCIUM 9.4 mg/dL (8.5-10.1); MAGNESIUM 2.3 mg/dL (1.8-2.4)
[2021-02-01 08:18] LABS: CREATININE 0.9 mg/dL (0.55-1.3)
[2021-02-01 08:19] LABS: PHOSPHOROUS 3.9 mg/dL (2.5-4.9)
[2021-02-01 08:20] LABS: BILIRUBIN,TOTAL 0.3 mg/dL (0.2-1); TOT PROT 7.1 g/dl (6.4-8.2)
[2021-02-01] MEDS: MUPIROCIN 2% TOPICAL OINTMENT FOR DECOLONIZATION NS SCH ×2 (10:32→21:13)
[2021-02-01] MEDS: amLODIPine BESYLATE 5 MG TABLET (FP) PO SCH (10:32)
[2021-02-01] MEDS: levETIRAcetam 500 MG/5 ML INJECTION VIAL IVPB SCH ×2 (10:32→21:13)
[2021-02-01] MEDS: LISINOPRIL 5 MG TABLET PO SCH (10:33)
[2021-02-01] MEDS: PANTOPRAZOLE SODIUM 40 MG VIAL IVPUSH SCH (10:33)
[2021-02-01] MEDS: LACTATED RINGERS SOLUTION 1,000 ML/1,000 ML INFUS.BAG IV SCH (16:28)
[2021-02-01] MEDS: CHLORHEXIDINE GLUCONATE 4% CLEANSER FOR DECOLONIZATION TP SCH (21:13)
[2021-02-02] MEDS: DEXAMETHASONE SOD PHOSPHATE 4 MG/1 ML VIAL IVPUSH SCH ×4 (02:36→22:38)
[2021-02-02] MEDS: DOCUSATE SODIUM 100 MG CAPSULE (FP) PO SCH ×3 (05:15→22:38)
[2021-02-02] MEDS: INSULIN SLIDING SCALE (NOVOLOG) 1 VIAL SQ SCH ×4 (06:41→22:59)
[2021-02-02 06:59] LABS: HEMATOCRIT 34.3 % (32.4-45.2); HEMOGLOBIN 11.1 GM/dL (10.7-15.3); MCH 31.8 pg (25.7-33.7); MCHC 32.4 g/dl (32.0-36.0); MEAN CELL VOLUME 98.1 fl (80-96); MEAN PLT VOLUME 7.9 fl (7.5-11.1); PLATELET COUNT 303 K/MM3 (134-434); RDW 13.4 % (11.6-15.6); WHITE BLOOD COUNT 15.6 K/mm3 (4.0-10.0)
[2021-02-02 07:29] LABS: ALBUMIN 2.6 g/dl (3.4-5.0); BLOOD UREA NITROGEN 14.3 mg/dL (7-18); CALCIUM 8.5 mg/dL (8.5-10.1); MAGNESIUM 2.3 mg/dL (1.8-2.4)
[2021-02-02 07:33] LABS: BILIRUBIN,TOTAL 0.4 mg/dL (0.2-1); CREATININE 0.7 mg/dL (0.55-1.3); PHOSPHOROUS 4.2 mg/dL (2.5-4.9); TOT PROT 6.2 g/dl (6.4-8.2)
[2021-02-02] MEDS: PANTOPRAZOLE SODIUM 40 MG VIAL IVPUSH SCH (09:13)
[2021-02-02] MEDS: levETIRAcetam 500 MG/5 ML INJECTION VIAL IVPB SCH ×2 (09:14→22:38)
[2021-02-02] MEDS: LISINOPRIL 5 MG TABLET PO SCH (09:14)
[2021-02-02] MEDS: amLODIPine BESYLATE 5 MG TABLET (FP) PO SCH (09:14)
[2021-02-02] MEDS: MUPIROCIN 2% TOPICAL OINTMENT FOR DECOLONIZATION NS SCH ×2 (09:14→22:38)
[2021-02-02] MEDS: LACTATED RINGERS SOLUTION 1,000 ML/1,000 ML INFUS.BAG IV SCH (14:38)
[2021-02-02] MEDS: CHLORHEXIDINE GLUCONATE 4% CLEANSER FOR DECOLONIZATION TP SCH (22:38)
[2021-02-03] MEDS: DEXAMETHASONE SOD PHOSPHATE 4 MG/1 ML VIAL IVPUSH SCH ×4 (02:25→21:29)
[2021-02-03] MEDS: DOCUSATE SODIUM 100 MG CAPSULE (FP) PO SCH ×3 (05:00→21:30)
[2021-02-03] MEDS: INSULIN SLIDING SCALE (NOVOLOG) 1 VIAL SQ SCH ×4 (06:11→21:46)
[2021-02-03 06:36] LABS: HEMATOCRIT 31.7 % (32.4-45.2); HEMOGLOBIN 10.6 GM/dL (10.7-15.3); MCH 32.2 pg (25.7-33.7); MCHC 33.4 g/dl (32.0-36.0); MEAN CELL VOLUME 96.3 fl (80-96); MEAN PLT VOLUME 8.1 fl (7.5-11.1); PLATELET COUNT 291 K/MM3 (134-434); RDW 13.1 % (11.6-15.6); WHITE BLOOD COUNT 12.2 K/mm3 (4.0-10.0)
[2021-02-03 06:59] LABS: CALCIUM 8.3 mg/dL (8.5-10.1)
[2021-02-03 07:01] LABS: ALBUMIN 2.4 g/dl (3.4-5.0); MAGNESIUM 2.3 mg/dL (1.8-2.4)
[2021-02-03 07:03] LABS: CREATININE 0.6 mg/dL (0.55-1.3); PHOSPHOROUS 3.4 mg/dL (2.5-4.9)
[2021-02-03 07:04] LABS: BILIRUBIN,TOTAL 0.3 mg/dL (0.2-1)
[2021-02-03 07:06] LABS: TOT PROT 5.7 g/dl (6.4-8.2)
[2021-02-03] MEDS: MUPIROCIN 2% TOPICAL OINTMENT FOR DECOLONIZATION NS SCH ×2 (10:32→21:29)
[2021-02-03] MEDS: levETIRAcetam 500 MG/5 ML INJECTION VIAL IVPB SCH ×2 (10:33→21:29)
[2021-02-03] MEDS: amLODIPine BESYLATE 5 MG TABLET (FP) PO SCH (10:33)
[2021-02-03] MEDS: PANTOPRAZOLE SODIUM 40 MG VIAL IVPUSH SCH (10:33)
[2021-02-03] MEDS: LISINOPRIL 5 MG TABLET PO SCH (10:33)
[2021-02-03] MEDS ORDERED: amLODIPine BESYLATE 5 MG TABLET (FP) PO SCH (12:45)
[2021-02-03] MEDS ORDERED: LISINOPRIL 5 MG TABLET PO SCH (12:45)
[2021-02-03] MEDS: LACTATED RINGERS SOLUTION 1,000 ML/1,000 ML INFUS.BAG IV SCH (16:13)
[2021-02-03] MEDS: ATORVASTATIN CA 40 MG TABLET (FP) PO SCH (21:46)
[2021-02-04] MEDS: DEXAMETHASONE SOD PHOSPHATE 4 MG/1 ML VIAL IVPUSH SCH ×4 (04:48→21:55)
[2021-02-04] MEDS: DOCUSATE SODIUM 100 MG CAPSULE (FP) PO SCH ×3 (05:02→22:01)
[2021-02-04] MEDS: INSULIN SLIDING SCALE (NOVOLOG) 1 VIAL SQ SCH ×4 (08:48→22:05)
[2021-02-04] MEDS: PANTOPRAZOLE SODIUM 40 MG VIAL IVPUSH SCH (09:18)
[2021-02-04] MEDS: levETIRAcetam 500 MG/5 ML INJECTION VIAL IVPB SCH ×2 (09:18→22:01)
[2021-02-04] MEDS: MUPIROCIN 2% TOPICAL OINTMENT FOR DECOLONIZATION NS SCH ×2 (10:43→22:02)
[2021-02-04] MEDS: LACTATED RINGERS SOLUTION 1,000 ML/1,000 ML INFUS.BAG IV SCH (16:00)
[2021-02-04] MEDS ORDERED: ACETAMINOPHEN WITH CODEINE 300MG/30MG TABLET PO PRN (19:26)
[2021-02-04] MEDS ORDERED: FUROSEMIDE 40 MG/4 ML INJECTABLE VIAL IVPUSH ONE (19:29)
[2021-02-04] MEDS: POLYETHYLENE GLYCOL 3350 119 GM BTL PO SCH (22:02)
[2021-02-04] MEDS: ATORVASTATIN CA 40 MG TABLET (FP) PO SCH (22:08)
[2021-02-05] MEDS ORDERED: ONDANSETRON 4 MG/2 ML VIAL IVPUSH PRN (02:18)
[2021-02-05] MEDS: DEXAMETHASONE SOD PHOSPHATE 4 MG/1 ML VIAL IVPUSH SCH ×4 (03:15→22:06)
[2021-02-05] MEDS: INSULIN SLIDING SCALE (NOVOLOG) 1 VIAL SQ SCH ×4 (06:01→22:01)
[2021-02-05 07:55] LABS: INR 1.04 (0.83-1.09); PROTHROMBIN TIME (PATIENT) 12.6 SEC (9.7-13.0)
[2021-02-05 08:04] LABS: BASO % 0.6 % (0-2.0); HEMATOCRIT 36.5 % (32.4-45.2); HEMOGLOBIN 12.4 GM/dL (10.7-15.3); LYMPH % 7.3 % (8-40); MCH 32.6 pg (25.7-33.7); MCHC 33.9 g/dl (32.0-36.0); MEAN CELL VOLUME 96.2 fl (80-96); MEAN PLT VOLUME 8.1 fl (7.5-11.1); MONO % 2.4 % (3.8-10.2); NEUT % 89.7 % (42.8-82.8); PLATELET COUNT 313 K/MM3 (134-434); RBC 3.79 M/mm3 (3.60-5.2)
[2021-02-05 08:19] LABS: ALBUMIN 2.5 g/dl (3.4-5.0); CALCIUM 8.2 mg/dL (8.5-10.1)
[2021-02-05 08:20] LABS: BLOOD UREA NITROGEN 16.4 mg/dL (7-18); MAGNESIUM 2.1 mg/dL (1.8-2.4)
[2021-02-05 08:22] LABS: CREATININE 0.7 mg/dL (0.55-1.3)
[2021-02-05 08:23] LABS: BILIRUBIN,TOTAL 0.4 mg/dL (0.2-1); PHOSPHOROUS 3.3 mg/dL (2.5-4.9); TOT PROT 6.2 g/dl (6.4-8.2)
[2021-02-05] MEDS: levETIRAcetam 500 MG/5 ML INJECTION VIAL IVPB SCH ×2 (10:05→22:03)
[2021-02-05] MEDS: DOCUSATE SODIUM 100 MG CAPSULE (FP) PO SCH ×2 (10:09→22:03)
[2021-02-05] MEDS: POLYETHYLENE GLYCOL 3350 119 GM BTL PO SCH (10:10)
[2021-02-05] MEDS: amLODIPine BESYLATE 5 MG TABLET (FP) PO SCH (10:10)
[2021-02-05] MEDS: LISINOPRIL 10 MG TABLET PO SCH (10:10)
[2021-02-05] MEDS: MUPIROCIN 2% TOPICAL OINTMENT FOR DECOLONIZATION NS SCH ×2 (10:11→22:03)
[2021-02-05] MEDS: PANTOPRAZOLE SODIUM 40 MG VIAL IVPUSH SCH (10:11)
[2021-02-05] MEDS: ATORVASTATIN CA 40 MG TABLET (FP) PO SCH ×2 (22:03→22:46)
[2021-02-06] MEDS: DEXAMETHASONE SOD PHOSPHATE 4 MG/1 ML VIAL IVPUSH SCH ×3 (03:03→21:26)
[2021-02-06] MEDS: INSULIN SLIDING SCALE (NOVOLOG) 1 VIAL SQ SCH ×4 (06:16→21:27)
[2021-02-06] MEDS: DOCUSATE SODIUM 100 MG CAPSULE (FP) PO SCH ×2 (10:30→21:26)
[2021-02-06] MEDS: POLYETHYLENE GLYCOL 3350 119 GM BTL PO SCH (10:33)
[2021-02-06] MEDS: MUPIROCIN 2% TOPICAL OINTMENT FOR DECOLONIZATION NS SCH (10:33)
[2021-02-06] MEDS: levETIRAcetam 500 MG/5 ML INJECTION VIAL IVPB SCH (10:33)
[2021-02-06] MEDS: amLODIPine BESYLATE 5 MG TABLET (FP) PO SCH (10:34)
[2021-02-06] MEDS: LISINOPRIL 10 MG TABLET PO SCH (10:34)
[2021-02-06] MEDS: PANTOPRAZOLE SODIUM 40 MG VIAL IVPUSH SCH (10:34)
[2021-02-06] MEDS ORDERED: ACETAMINOPHEN 325 MG TABLET (FP) PO PRN (15:12)
[2021-02-06] MEDS: ATORVASTATIN CA 40 MG TABLET (FP) PO SCH ×2 (21:26→22:00)
[2021-02-06] MEDS: levETIRAcetam 500 MG TABLET (FP) PO SCH (21:26)
[2021-02-07] MEDS: INSULIN SLIDING SCALE (NOVOLOG) 1 VIAL SQ SCH ×4 (06:41→22:06)
[2021-02-07] MEDS: LISINOPRIL 10 MG TABLET PO SCH (09:10)
[2021-02-07] MEDS: DOCUSATE SODIUM 100 MG CAPSULE (FP) PO SCH ×2 (09:10→22:07)
[2021-02-07] MEDS: PANTOPRAZOLE 40 MG TABLET PO SCH (09:11)
[2021-02-07] MEDS: amLODIPine BESYLATE 5 MG TABLET (FP) PO SCH (09:11)
[2021-02-07] MEDS: DEXAMETHASONE SOD PHOSPHATE 4 MG/1 ML VIAL IVPUSH SCH ×2 (09:11→22:08)
[2021-02-07] MEDS: POLYETHYLENE GLYCOL 3350 119 GM BTL PO SCH (09:11)
[2021-02-07] MEDS: levETIRAcetam 500 MG TABLET (FP) PO SCH ×2 (09:11→22:07)
[2021-02-07] MEDS: ASPIRIN 81 MG CHEWABLE TABLETS PO SCH (12:23)
[2021-02-07] MEDS: ATORVASTATIN CA 40 MG TABLET (FP) PO SCH ×2 (22:07→22:14)
[2021-02-08] MEDS: INSULIN SLIDING SCALE (NOVOLOG) 1 VIAL SQ SCH ×2 (06:37→12:17)
[2021-02-08] MEDS: amLODIPine BESYLATE 5 MG TABLET (FP) PO SCH (10:26)
[2021-02-08] MEDS: PANTOPRAZOLE 40 MG TABLET PO SCH (10:27)
[2021-02-08] MEDS: ASPIRIN 81 MG CHEWABLE TABLETS PO SCH (10:27)
[2021-02-08] MEDS: levETIRAcetam 500 MG TABLET (FP) PO SCH (10:27)
[2021-02-08] MEDS: LISINOPRIL 10 MG TABLET PO SCH (10:27)
[2021-02-08] MEDS: DOCUSATE SODIUM 100 MG CAPSULE (FP) PO SCH (10:27)
[2021-02-08] MEDS: POLYETHYLENE GLYCOL 3350 119 GM BTL PO SCH (10:27)
[2021-02-08 11:46] VITALS: BP 148/78; PULSE 58; TEMP 98.2
== END 2021-02-08 13:42 | DRG 25 ==
LOC: JER 18:47 → JERBED 23:15 → JICU 01-29 00:14 → J4W 02-05 02:57
PROVIDERS: ADMIT Internal Medicine; ATTEND Family Medicine
PROC: 00C00ZZ Extirpation of Matter from Brain, Open Approach (ICD-10-PCS; principal; 2021-01-31 10:30)
DX: I62.00 Nontraumatic subdural hemorrhage, unspecified (principal); G93.5 Compression of brain; G08 Intracranial and intraspinal phlebitis and thrombophlebitis; G97.51 Postprocedural hemorrhage of a nervous system organ or structure following a nervous system procedure; I97.821 Postprocedural cerebrovascular infarction following other surgery; I10 Essential (primary) hypertension; E11.9 Type 2 diabetes mellitus without complications; R29.898 Other symptoms and signs involving the musculoskeletal system; I60.9 Nontraumatic subarachnoid hemorrhage, unspecified; F41.9 Anxiety disorder, unspecified; Y83.9 Surgical procedure, unspecified as the cause of abnormal reaction of the patient, or of later complication, without mention of misadventure at the time of the procedure
CPT/HCPCS: 36415; 70450-TC; 70551-TC; 71045-TC-FY; 72141-TC; 80048; 80053; 80061; 82962; 83036; 83721; 83735; 84100; 85025; 85027; 85379; 85384; 85610; 85730; 86850; 86900; 86901; 93005; 93010; 93306-TC; 93880-TC; 94010; 97116-GP; 97162-GP; 99285-25; C9803; J0131; U0003; U0005

== ENCOUNTER 2021-02-12 01:17 | Emergency (ER) | payer OTHER ==
[2021-02-12 01:28] VITALS: BMI 24.5
[2021-02-12] MEDS ORDERED: GABAPENTIN 100 MG CAPSULE PO ONE (02:46)
[2021-02-12] MEDS ORDERED: GABAPENTIN 100 MG CAPSULE ONE (02:59)
[2021-02-12 06:54] VITALS: TEMP 97.8
[2021-02-12 07:37] VITALS: BP 106/60; PULSE 69
== END 2021-02-12 07:29 ==
LOC: JER 01:17
DX: G89.18 Other acute postprocedural pain (principal)
CPT/HCPCS: 99284-25

== ENCOUNTER 2021-09-18 10:33 | Emergency (ER) | payer OTHER ==
[2021-09-18 10:39] VITALS: BP 144/78; PULSE 60; TEMP 97.8; BMI 24.5
== END 2021-09-18 11:50 | disposition home or self-care (01) ==
LOC: JER 10:33 → JERFT 10:33
DX: H11.31 Conjunctival hemorrhage, right eye (principal)
CPT/HCPCS: 99283-25

== ENCOUNTER 2022-03-25 15:33 | Emergency (ER) | payer OTHER ==
[2022-03-25 15:45] VITALS: BP 137/73; PULSE 68; TEMP 98.6; BMI 21.1
[2022-03-25 18:29] LABS: BASO % 0.7 % (0-2.0); EOS % 1.2 % (0-4.5); HEMATOCRIT 41.3 % (32.4-45.2); HEMOGLOBIN 13.6 GM/dL (10.7-15.3); LYMPH % 44.3 % (8-40); MCH 31.7 pg (25.7-33.7); MEAN CELL VOLUME 96.3 fl (80-96); MEAN PLT VOLUME 8.5 fl (7.5-11.1); MONO % 9.1 % (3.8-10.2); NEUT % 44.7 % (42.8-82.8); PLATELET COUNT 192 10^3/uL (134-434); RBC 4.28 M/mm3 (3.60-5.2); RDW 13.4 % (11.6-15.6); WHITE BLOOD COUNT 5.3 K/mm3 (4.0-10.0)
[2022-03-25 18:52] LABS: PH,URINE 5.5 (5.0-8.0); URINE APPEARANCE CLEAR; URINE BILIRUBIN NEGATIVE (NEGATIVE); URINE COLOR YELLOW; URINE GLUCOSE (UA) NEGATIVE (NEGATIVE); URINE KETONE TRACE (NEGATIVE); URINE LEUK ESTERASE NEGATIVE (NEGATIVE); URINE NITRITE NEGATIVE (NEGATIVE); URINE PROTEIN NEGATIVE (NEGATIVE); URINE UROBILINOGEN 0.2 mg/dL (0.2-1.0)
[2022-03-25 18:57] LABS: ALBUMIN 3.6 g/dl (3.4-5.0); CALCIUM 9.1 mg/dL (8.5-10.1)
[2022-03-25 19:01] LABS: CREATININE 0.8 mg/dL (0.55-1.3)
[2022-03-25 19:02] LABS: BILIRUBIN,TOTAL 0.5 mg/dL (0.2-1); TOT PROT 7.4 g/dl (6.4-8.2)
== END 2022-03-25 20:33 | disposition home or self-care (01) ==
LOC: JER 15:33
DX: I10 Essential (primary) hypertension (principal)
CPT/HCPCS: 36415; 80053; 81003; 85025; 87086; 87186; 99284-25

== ENCOUNTER 2023-01-22 11:19 | Emergency (ER) | payer OTHER ==
[2023-01-22 11:33] VITALS: RESP 18; BMI 25.0
[2023-01-22] MEDS ORDERED: METOCLOPRAMIDE HCL INJECTION 10 MG/2 ML VIAL IVPB ONE (13:22)
[2023-01-22] MEDS ORDERED: METOCLOPRAMIDE HCL INJECTION 10 MG/2 ML VIAL ONE (13:38)
[2023-01-22] MEDS ORDERED: ACETAMINOPHEN 1000 MG/100 ML BAG IVPB ONE (14:14)
[2023-01-22] MEDS ORDERED: ACETAMINOPHEN INJECTION 100 ML IVPB ONE (14:27)
[2023-01-22 14:33] LABS: BASO % 0.5 % (0-2.0); EOS % 0.9 % (0-4.5); HEMATOCRIT 39.6 % (32.4-45.2); HEMOGLOBIN 13.6 GM/dL (10.7-15.3); LYMPH % 36.3 % (8-40); MCH 32.9 pg (25.7-33.7); MCHC 34.3 g/dl (32.0-36.0); MEAN CELL VOLUME 95.9 fl (80-96); MEAN PLT VOLUME 8.5 fl (7.5-11.1); MONO % 5.3 % (3.8-10.2); PLATELET COUNT 220 10^3/uL (134-434); RBC 4.13 M/mm3 (3.60-5.2); RDW 13.2 % (11.6-15.6); WHITE BLOOD COUNT 7.5 K/mm3 (4.0-10.0)
[2023-01-22 15:38] LABS: CALCIUM 9.6 mg/dL (8.5-10.1)
[2023-01-22 15:39] LABS: ALBUMIN 3.8 g/dl (3.4-5.0); BLOOD UREA NITROGEN 9.5 mg/dL (7-18)
[2023-01-22 15:42] LABS: CREATININE 0.9 mg/dL (0.55-1.3)
[2023-01-22 15:43] LABS: BILIRUBIN,TOTAL 0.7 mg/dL (0.2-1); TOT PROT 7.9 g/dl (6.4-8.2)
[2023-01-22 15:46] VITALS: TEMP 98.2
[2023-01-22 21:01] VITALS: BP 146/80; PULSE 70
== END 2023-01-22 21:01 | disposition home or self-care (01) ==
LOC: JER 11:19
PROC: 3E033NZ Introduction of Analgesics, Hypnotics, Sedatives into Peripheral Vein, Percutaneous Approach (ICD-10-PCS; principal; 2023-01-22)
PROC: 3E033GC Introduction of Other Therapeutic Substance into Peripheral Vein, Percutaneous Approach (ICD-10-PCS; 2023-01-22)
DX: R51.9 Headache, unspecified (principal); M54.2 Cervicalgia; H57.89 Other specified disorders of eye and adnexa; Z87.820 Personal history of traumatic brain injury
CPT/HCPCS: 36415; 70450-TC; 70460-TC; 80053; 85025; 99284-25; Q9967

== ENCOUNTER 2023-10-21 10:08 | Emergency (ER) | payer OTHER ==
[2023-10-21 11:01] VITALS: BP 148/77; PULSE 63; RESP 18; TEMP 98.2; BMI 24.2
== END 2023-10-21 13:20 | disposition home or self-care (01) ==
LOC: JER 10:08
DX: N64.4 Mastodynia (principal); R05.9 Cough, unspecified; L90.5 Scar conditions and fibrosis of skin
CPT/HCPCS: 71046-TC-FY; 99283-25

== ENCOUNTER → 2024-08-06 | Day surgery (SDC) | payer OTHER ==
[2024-08-05 15:19] VITALS: BMI 25.2
[2024-08-06 10:19] VITALS: TEMP 98.3
[2024-08-06 12:15] VITALS: BP 138/62; PULSE 65; RESP 17
== END | disposition home or self-care (01) ==
LOC: JASU-ENDO 04:28
PROVIDERS: ATTEND Internal Medicine Gastroenterology
PROC: 0DB78ZX Excision of Stomach, Pylorus, Via Natural or Artificial Opening Endoscopic, Diagnostic (ICD-10-PCS; 2024-08-06)
PROC: 0DB68ZX Excision of Stomach, Via Natural or Artificial Opening Endoscopic, Diagnostic (ICD-10-PCS; 2024-08-06)
PROC: 0DB28ZX Excision of Middle Esophagus, Via Natural or Artificial Opening Endoscopic, Diagnostic (ICD-10-PCS; 2024-08-06)
PROC: 0DB38ZX Excision of Lower Esophagus, Via Natural or Artificial Opening Endoscopic, Diagnostic (ICD-10-PCS; 2024-08-06)
PROC: 0DB98ZX Excision of Duodenum, Via Natural or Artificial Opening Endoscopic, Diagnostic (ICD-10-PCS; principal; 2024-08-06 11:30)
DX: K29.50 Unspecified chronic gastritis without bleeding (principal); K21.00 Gastro-esophageal reflux disease with esophagitis, without bleeding; K31.7 Polyp of stomach and duodenum
CPT/HCPCS: 36415; 84132; 88305-TC; 88342-TC

== ENCOUNTER 2025-04-09 13:47 | Observation (INO) | payer OTHER ==
[2025-04-09 15:38] LABS: ABSOLUTE IMMATURE GRANULOCYTES 0.05 x10^3/uL (0.0-0.031); BASOPHILS # 0.03 x10^3/uL (0.01-0.08); EOSINOPHIL % 1.6 % (0.7-5.8); EOSINOPHILS # 0.13 x10^3/uL (0.04-0.36); MCHC 32.1 g/dl (32.2-35.5); MEAN CELL VOLUME 99.5 fl (79.4-94.8); MEAN PLT VOLUME 10.0 fl (9.4-12.3); MONOCYTE # 0.48 x10^3/uL (0.24-0.86); MONOCYTE % 6.0 % (4.7-12.5); RDW 13.6 % (12.5-17.0)
[2025-04-09 15:59] LABS: CO2 28.0 mmol/L (21-32); GLUCOSE,RANDOM 98.0 mg/dL (74-106)
[2025-04-09 16:03] LABS: CREATININE 0.8 mg/dL (0.55-1.3); SGOT/AST 32.0 U/L (15-37); SGPT/ALT 31.0 U/L (13-61)
[2025-04-09 16:04] LABS: TOT PROT 6.9 g/dl (6.4-8.2)
[2025-04-09 16:06] LABS: ALK PHOS 81.0 U/L (45-117)
[2025-04-09] MEDS ORDERED: ACETAMINOPHEN INJECTION 100 ML ONE (18:42)
[2025-04-09] MEDS: ACETAMINOPHEN 1000 MG/100 ML BAG IVPB ONE (18:52)
[2025-04-09 19:09] LABS: CO2 28.0 mmol/L (21-32); GLUCOSE,RANDOM 97.0 mg/dL (74-106)
[2025-04-09 19:11] LABS: URINE APPEARANCE CLEAR; URINE BILIRUBIN NEGATIVE (NEGATIVE); URINE COLOR YELLOW; URINE GLUCOSE (UA) NEGATIVE (NEGATIVE); URINE KETONE NEGATIVE (NEGATIVE); URINE LEUK ESTERASE NEGATIVE (NEGATIVE); URINE NITRITE NEGATIVE (NEGATIVE); URINE PROTEIN NEGATIVE (NEGATIVE); URINE UROBILINOGEN 0.2 mg/dL (0.2-1.0)
[2025-04-09 19:13] LABS: CREATININE 0.8 mg/dL (0.55-1.3)
[2025-04-09] MEDS ORDERED: DOCUSATE SODIUM 100 MG CAPSULE (FP) PO PRN (21:58)
[2025-04-09] MEDS: INSULIN ASPART SLIDING SCALE (NOVOLOG) 1 VIAL SQ SCH (22:43)
[2025-04-09 22:53] LABS: HIV INTERPRETATION NEGATIVE (NEGATIVE)
[2025-04-09 22:55] LABS: HCV DIAGNOSTIC IN-HOUSE W/RFLX NON-REACTIVE (NONREACTIVE)
[2025-04-10] MEDS ORDERED: SENNOSIDES 8.6MG TABLET (FP) PO PRN (02:22)
[2025-04-10 06:13] VITALS: BMI 24.7
[2025-04-10 08:42] LABS: CO2 23.0 mmol/L (21-32); GLUCOSE,RANDOM 78.0 mg/dL (74-106)
[2025-04-10 08:50] LABS: CREATININE 0.7 mg/dL (0.55-1.3)
[2025-04-10] MEDS: ASPIRIN 81 MG CHEWABLE TABLETS PO SCH (10:01)
[2025-04-10] MEDS: amLODIPine BESYLATE 5 MG TABLET (FP) PO SCH (10:01)
[2025-04-10] MEDS: PANTOPRAZOLE 40 MG TABLET PO SCH (10:02)
[2025-04-10] MEDS: LISINOPRIL 10 MG TABLET PO SCH (10:02)
[2025-04-10 10:28] LABS: MCHC 31.9 g/dl (32.2-35.5); MEAN CELL VOLUME 100.0 fl (79.4-94.8); MEAN PLT VOLUME 10.5 fl (9.4-12.3); RDW 13.6 % (12.5-17.0)
[2025-04-10] MEDS: traZODone HCL 50 MG TABLET (FP) PO SCH (22:34)
[2025-04-10] MEDS: MAG HYDROX/AL HYDROX/SIMETH 30 ML UNIT-DOSE CUP PO PRN (23:35)
[2025-04-11] MEDS ORDERED: NADOLOL 20 MG TABLET (FP) PO SCH (15:34)
[2025-04-11 16:27] LABS: ABSOLUTE IMMATURE GRANULOCYTES 0.02 x10^3/uL (0.0-0.031); BASOPHILS # 0.03 x10^3/uL (0.01-0.08); EOSINOPHIL % 2.9 % (0.7-5.8); EOSINOPHILS # 0.21 x10^3/uL (0.04-0.36); MCHC 32.7 g/dl (32.2-35.5); MEAN CELL VOLUME 99.3 fl (79.4-94.8); MEAN PLT VOLUME 10.9 fl (9.4-12.3); MONOCYTE # 0.53 x10^3/uL (0.24-0.86); MONOCYTE % 7.4 % (4.7-12.5); RDW 13.9 % (12.5-17.0)
[2025-04-11] MEDS: NADOLOL 20 MG TABLET (FP) PO SCH (16:41)
[2025-04-11 16:44] LABS: CO2 29.0 mmol/L (21-32); GLUCOSE,RANDOM 99.0 mg/dL (74-106)
[2025-04-11 16:47] LABS: CREATININE 1.0 mg/dL (0.55-1.3)
[2025-04-11 16:48] LABS: SGOT/AST 19.0 U/L (15-37); SGPT/ALT 28.0 U/L (13-61)
[2025-04-11 16:49] LABS: ALK PHOS 97.0 U/L (45-117); TOT PROT 7.1 g/dl (6.4-8.2)
[2025-04-11] MEDS: NADOLOL 40 MG TABLET (FP) PO SCH (17:56)
[2025-04-11] MEDS: ACETAMINOPHEN 325 MG TABLET (FP) PO PRN (23:45)
[2025-04-13] MEDS: MULTIVITAMINS (DAILY MVI) TABLET (FP) PO SCH (09:59)
[2025-04-13] MEDS: DIVALPROEX NA *ER* EXTEND REL 250 MG TABLET.SA PO SCH (09:59)
[2025-04-13 10:13] LABS: URINE APPEARANCE CLOUDY; URINE BILIRUBIN NEGATIVE (NEGATIVE); URINE COLOR YELLOW; URINE GLUCOSE (UA) NEGATIVE (NEGATIVE); URINE KETONE NEGATIVE (NEGATIVE); URINE LEUK ESTERASE NEGATIVE (NEGATIVE); URINE NITRITE NEGATIVE (NEGATIVE); URINE PROTEIN NEGATIVE (NEGATIVE); URINE UROBILINOGEN 0.2 mg/dL (0.2-1.0)
[2025-04-13 14:19] VITALS: BP 116/53; PULSE 49; RESP 18; TEMP 97.7
== END 2025-04-13 15:47 | disposition home or self-care (01) ==
LOC: JER 13:47 → JERBED 21:36 → J4W 04-10 00:58
PROVIDERS: ADMIT Family Medicine; ATTEND Family Medicine
PROC: 3E033NZ Introduction of Analgesics, Hypnotics, Sedatives into Peripheral Vein, Percutaneous Approach (ICD-10-PCS; principal; 2025-04-09)
DX: E87.5 Hyperkalemia (principal); I10 Essential (primary) hypertension; G43.909 Migraine, unspecified, not intractable, without status migrainosus; R73.03 Prediabetes; I34.0 Nonrheumatic mitral (valve) insufficiency; G25.81 Restless legs syndrome; Z86.73 Personal history of transient ischemic attack (TIA), and cerebral infarction without residual deficits; Z90.79 Acquired absence of other genital organ(s); Z86.79 Personal history of other diseases of the circulatory system
CPT/HCPCS: 36415; 70450-TC; 80048; 80053; 81003; 82962; 84439; 84443; 84484; 85025; 85027; 85651; 86140; 86803; 87086; 87389; 93005; 93010; 93306-TC; 93880-TC; 96374; 97116-GP; 97161-GP; 99285-25; G0378